=== PATIENT | female | born 1970 | race Caucasian/White ===

== ENCOUNTER 2017-12-15 19:48 | Emergency (ER) | payer SELFPAY ==
[~2017-12-15] VITALS: Ht 170.2 cm; Wt 79.4 kg
--- OUTSIDE RECORDS SUMMARY | 2017-12-15 19:55 | XMS REPORT | Continuity of Care Document ---
Author Author [facility] Organization [facility] Address Unknown Phone Unavailable Allergies There is no data. Medications There is no data. Problems There is no data. Procedures There is no data. Results There is no data. Encounters ACCT No. Visit Date/Time Discharge Status Pt. Type Provider Facility Loc./Unit Complaint [id number] 07/16/2013 17:57:00 07/16/2013 23:59:59 CLS Outpatient
[2017-12-15] MEDS ORDERED: KETOROLAC 30 MG/ML VIAL IVP ONE (20:00)
[2017-12-15] MEDS ORDERED: PROCHLORPERAZINE 10 MG/2ML INJ (COMPAZINE) IV ONE (20:00)
[2017-12-15] MEDS ORDERED: diphenhydrAMINE 50 MG/ML INJ (BENADRYL) IVP ONE (20:00)
--- NOTE | 2017-12-15 20:00 | ED General ---
General Chief Complaint: Abdominal/GI Problems Stated Complaint: VOMITING BLOOD/HEADACHE Source of Information: Patient Exam Limitations: No Limitations History of Present Illness Date Seen by Provider: Dec 15, 2017 Time Seen by Provider: 19:59 Initial Comments To ER with and son with reports of headache, vomiting with blood tinged sputum. This just began earlier this evening. Patient has a history of migraines but it's been a long time since she's had one that she does not recall whether or not this headache is similar to previous. After the headache began, she then developed nausea and vomiting some of which was tinged with blood. No abdominal pain. Timing/Duration: 4-6 Hours Severity: Moderate Associated Systoms: Headaches, Nausea/Vomiting Allergies and Home Medications Allergies Coded Allergies: No Known Drug Allergies (Unverified , 12/15/17) Constitutional: see HPI EENTM: see HPI Respiratory: no symptoms reported Cardiovascular: no symptoms reported Gastrointestinal: No abdominal pain, hematemesis, nausea Genitourinary: no symptoms reported Musculoskeletal: no symptoms reported Skin: no symptoms reported Psychiatric/Neurological: No Symptoms Reported Past Rmowahi-Icrjsh-Hzqtig Hx Patient Social History Recent Foreign Travel: No Contact w/Someone Who Travel: No Physical Exam Vital Signs Vital Sign - Last 12Hours 12/15/17 19:53 Temp 96.9 Pulse 85 Resp 20 B/P (MAP) 116/84 (95) Pulse Ox 98 O2 Delivery Room Air Capillary Refill : General Appearance: No Apparent Distress, WD/WN Eyes: Bilateral Eye Normal Inspection, Bilateral Eye PERRL, Bilateral Eye EOMI HEENT: PERRL/EOMI, TMs Normal, Normal ENT Inspection Neck: Full Range of Motion, Normal Inspection Respiratory: Normal Breath Sounds, No Accessory Muscle Use, No Respiratory Distress Cardiovascular: Regular Rate, Rhythm, Normal Peripheral Pulses Gastrointestinal: Non Tender, Soft Extremity: Normal Capillary Refill, Normal Inspection Neurologic/Psychiatric: Alert, Oriented x3, No Motor/Sensory Deficits Skin: Normal Color, Warm/Dry Progress/Results/Core Measures Suspected Sepsis SIRS Temperature: Pulse: Respiratory Rate: Laboratory Tests 12/15/17 20:04: White Blood Count 15.4H Blood Pressure / Mean: Laboratory Tests 12/15/17 20:04: Creatinine 0.78, Platelet Count 407H, Total Bilirubin 0.3 Results/Orders Lab Results Laboratory Tests Test 12/15/17 20:04 12/15/17 20:15 Range/Units White Blood Count 15.4 H 4.3-11.0 10^3/uL Red Blood Count 5.33 4.35-5.85 10^6/uL Hemoglobin 15.6 11.5-16.0 G/DL Hematocrit 47 35-52 % Mean Corpuscular Volume 88 80-99 FL Mean Corpuscular Hemoglobin 29 25-34 PG Mean Corpuscular Hemoglobin Concent 33 32-36 G/DL Red Cell Distribution Width 13.7 10.0-14.5 % Platelet Count 407 H 130-400 10^3/uL Mean Platelet Volume 8.9 7.4-10.4 FL Neutrophils (%) (Auto) 54 42-75 % Lymphocytes (%) (Auto) 34 12-44 % Monocytes (%) (Auto) 5 0-12 % Eosinophils (%) (Auto) 5 0-10 % Basophils (%) (Auto) 1 0-10 % Neutrophils # (Auto) 8.3 H 1.8-7.8 X 10^3 Lymphocytes # (Auto) 5.3 H 1.0-4.0 X 10^3 Monocytes # (Auto) 0.8 0.0-1.0 X 10^3 Eosinophils # (Auto) 0.7 H 0.0-0.3 10^3/uL Basophils # (Auto) 0.2 H 0.0-0.1 10^3/uL Neutrophils % (Manual) 48 % Lymphocytes % (Manual) 40 % Monocytes % (Manual) 3 % Eosinophils % (Manual) 7 % Basophils % (Manual) 2 % Band Neutrophils 0 % Blood Morphology Comment NORMAL Sodium Level 142 135-145 MMOL/L Potassium Level 4.0 3.6-5.0 MMOL/L Chloride Level 105 98-107 MMOL/L Carbon Dioxide Level 27 21-32 MMOL/L Anion Gap 10 5-14 MMOL/L Blood Urea Nitrogen 15 7-18 MG/DL Creatinine 0.78 0.60-1.30 MG/DL Estimat Glomerular Filtration Rate > 60 BUN/Creatinine Ratio 19 Glucose Level 101 70-105 MG/DL Calcium Level 9.4 8.5-10.1 MG/DL Total Bilirubin 0.3 0.1-1.0 MG/DL Aspartate Amino Transf (AST/SGOT) 10 5-34 U/L Alanine Aminotransferase (ALT/SGPT) 10 0-55 U/L Alkaline Phosphatase 71 40-136 U/L Total Protein 7.8 6.4-8.2 GM/DL Albumin 4.3 3.2-4.5 GM/DL Lipase 27 8-78 U/L Urine Color YELLOW Urine Clarity SLIGHTLY CLOUDY Urine pH 5 5-9 Urine Specific [place] 1.030 H 1.016-1.022 Urine Protein 1+ H NEGATIVE Urine Glucose (UA) NEGATIVE NEGATIVE Urine Ketones NEGATIVE NEGATIVE Urine Nitrite NEGATIVE NEGATIVE Urine Bilirubin NEGATIVE NEGATIVE Urine Urobilinogen 1 NORMAL MG/DL Urine Leukocyte Esterase 2+ H NEGATIVE Urine RBC (Auto) 3+ H NEGATIVE Urine RBC 2-5 H /HPF Urine WBC 5-10 H /HPF Urine Squamous Epithelial Cells 10-25 H /HPF Urine Crystals NONE /LPF Urine Bacteria FEW H /HPF Urine Casts NONE /LPF Urine Mucus LARGE H /LPF Urine Culture Indicated YES Urine Opiates Screen NEGATIVE NEGATIVE Urine Oxycodone Screen NEGATIVE NEGATIVE Urine Methadone Screen NEGATIVE NEGATIVE Urine Propoxyphene Screen NEGATIVE NEGATIVE Urine Barbiturates Screen NEGATIVE NEGATIVE Ur Tricyclic Antidepressants Screen NEGATIVE NEGATIVE Urine Phencyclidine Screen NEGATIVE NEGATIVE Urine Amphetamines Screen NEGATIVE NEGATIVE Urine Methamphetamines Screen NEGATIVE NEGATIVE Urine Benzodiazepines Screen NEGATIVE NEGATIVE Urine Cocaine Screen NEGATIVE NEGATIVE Urine Cannabinoids Screen NEGATIVE NEGATIVE My Orders Orders - ANDERSON HOUSE APRN Cbc With Automated Diff (12/15/17 19:57) Comprehensive Metabolic Panel (12/15/17 19:57) Lipase (12/15/17 19:57) Ua Culture If Indicated (12/15/17 19:57) Drug Screen Stat (Urine) (12/15/17 19:57) Saline Lock/Iv-Start (12/15/17 19:57) Ketorolac Injection (Toradol Injection) (12/15/17 20:00) Prochlorperazine Injection (Compazine In (12/15/17 20:00) Diphenhydramine Injection (Benadryl Inje (12/15/17 20:00) Ct Head Wo (12/15/17 19:57) Ns Iv 500 Ml (Sodium Chloride 0.9%) (12/15/17 20:15) Manual Differential (12/15/17 20:04) Urine Culture (12/15/17 20:15) Sulfamethoxazole/Trimet Ds Tab (Bactrim (12/15/17 21:00) Medications Given in ED Current Medications Medications Dose Ordered Sig/Kael Route Start Time Stop Time Status Last Admin Dose Admin Diphenhydramine HCl 25 mg ONCE ONCE IVP 12/15/17 20:00 12/15/17 20:01 DC 12/15/17 20:17 25 MG Ketorolac Tromethamine 30 mg ONCE ONCE IVP 12/15/17 20:00 12/15/17 20:01 DC 12/15/17 20:17 30 MG Prochlorperazine Edisylate 5 mg ONCE ONCE IV 12/15/17 20:00 12/15/17 20:01 DC 12/15/17 20:17 5 MG Vital Signs/I&O Vital Sign - Last 12Hours 12/15/17 19:53 Temp 96.9 Pulse 85 Resp 20 B/P (MAP) 116/84 (95) Pulse Ox 98 O2 Delivery Room Air Capillary Refill : Departure Communication (Admissions) Progress Notes 2047-patient is feeling much better. She did vomit here just before the IV start but states that sensation is gone. No abdominal pain. Headache is better. Impression Impression: Primary Impression: Headache Additional Impressions: Nausea and vomiting Urinary tract infection Disposition: HOME, SELF-CARE Condition: Improved Departure-Patient Inst. Decision time for Depature: 20:43 Referrals: NO,LOCAL PHYSICIAN (PCP/Family) Primary Care Physician Patient Instructions: Urinary Tract Infection, Adult (DC) Add. Discharge Instructions: 1. Antibiotics as directed 2. Return to ER for any concerns 3. See your doctor next week All discharge instructions reviewed with patient and/or family. Voiced understanding. Scripts Omeprazole (Omeprazole) 40 Mg Capsule. 40 MG PO DAILY, #14 CAP Prov: ANDERSON HOUSE BASKET BRAIDER 12/15/17 Sulfamethoxazole/Trimethoprim (Bactrim Ds Tablet) 1 Each Tablet 1 EACH PO BID, #10 TAB Prov: ANDERSON HOUSE BASKET BRAIDER 12/15/17 ANDERSON HOUSE BASKET BRAIDER Dec 15, 2017 20:00
[2017-12-15 20:15] LABS: BASOPHILS # (AUTO) 0.2 10^3/uL (0.0-0.1); BASOPHILS % (AUTO) 1 % (0-10); EOSINOPHILS # (AUTO) 0.7 10^3/uL (0.0-0.3); EOSINOPHILS % (AUTO) 5 % (0-10); HEMATOCRIT 47 % (35-52); HEMOGLOBIN 15.6 G/DL (11.5-16.0); LYMPHOCYTES # (AUTO) 5.3 X 10^3 (1.0-4.0); LYMPHOCYTES % (AUTO) 34 % (12-44); MEAN CORPUSCULAR HEMOGLOBIN 29 PG (25-34); MEAN CORPUSCULAR HGB CONC 33 G/DL (32-36); MEAN CORPUSCULAR VOLUME 88 FL (80-99); MEAN PLATELET VOLUME 8.9 FL (7.4-10.4); MONOCYTES # (AUTO) 0.8 X 10^3 (0.0-1.0); MONOCYTES % (AUTO) 5 % (0-12); NEUTROPHILS # (AUTO) 8.3 X 10^3 (1.8-7.8); NEUTROPHILS % (AUTO) 54 % (42-75); PLATELET COUNT 407 10^3/uL (130-400); RED BLOOD COUNT 5.33 10^6/uL (4.35-5.85); RED CELL DISTRIBUTION WIDTH 13.7 % (10.0-14.5); WHITE BLOOD COUNT 15.4 10^3/uL (4.3-11.0)
[2017-12-15] MEDS ORDERED: NS IV 500 ML 500 ML IV SCH (20:15)
[2017-12-15 20:30] LABS: BACTERIA,URINE FEW /HPF; BILIRUBIN,URINE NEGATIVE (NEGATIVE); CLARITY,URINE SLIGHTLY CLOUDY; COLOR,URINE YELLOW; GLUCOSE, URINE (UA) NEGATIVE (NEGATIVE); KETONES,URINE NEGATIVE (NEGATIVE); LEUKOCYTE ESTERASE ,URINE 2+ (NEGATIVE); NITRITE,URINE NEGATIVE (NEGATIVE); PH,URINE 5 (5-9); PROTEIN,URINE 1+ (NEGATIVE); UROBILINOGEN,URINE 1 MG/DL (NORMAL)
[2017-12-15 20:33] LABS: AMPHETAMINE SCREEN, URINE NEGATIVE (NEGATIVE); BARBITURATE SCREEN URINE NEGATIVE (NEGATIVE); BENZODIAZEPINES SCREEN URINE NEGATIVE (NEGATIVE); CANNABINOID SCREEN, URINE NEGATIVE (NEGATIVE); COCAINE SCREEN URINE NEGATIVE (NEGATIVE); METHADONE STAT NEGATIVE (NEGATIVE); METHAMPHETAMINE SCREEN URINE S NEGATIVE (NEGATIVE); OPIATE SCREEN URINE NEGATIVE (NEGATIVE); OXYCODONE STAT NEGATIVE (NEGATIVE); PROPOXYPHENE STAT NEGATIVE (NEGATIVE); TRICYCLIC ANTIDEPRESSANTS SCRE NEGATIVE (NEGATIVE)
--- NOTE | 2017-12-15 20:34 | Diagnostic Imaging Report ---
PROCEDURE: CT head without contrast. TECHNIQUE: Multiple contiguous axial images were obtained through the brain without the use of intravenous contrast. INDICATION: Migraine headache with nausea and vomiting. FINDINGS: The ventricles are normal in size, shape and position. There are no masses or hemorrhages. There are no extra-axial fluid collections. IMPRESSION: Negative CT head. Dictated by: Dictated on workstation # [id number]
[2017-12-15 20:36] LABS: ALANINE AMINOTRANSFERASE 10 U/L (0-55); ALBUMIN 4.3 GM/DL (3.2-4.5); ALKALINE PHOSPHATASE 71 U/L (40-136); BILIRUBIN,TOTAL 0.3 MG/DL (0.1-1.0); BUN/CREATININE RATIO 19; CALCIUM 9.4 MG/DL (8.5-10.1); CARBON DIOXIDE 27 MMOL/L (21-32); CHLORIDE 105 MMOL/L (98-107); CREATININE SERUM 0.78 MG/DL (0.60-1.30); GFR ESTIMATED > 60; GLUCOSE 101 MG/DL (70-105); LIPASE 27 U/L (8-78); SODIUM 142 MMOL/L (135-145); TOTAL PROTEIN 7.8 GM/DL (6.4-8.2)
[2017-12-15 20:38] LABS: BAND NEUTROPHILS 0 %; BASOPHILS % (MANUAL) 2 %; EOSINOPHILS % (MANUAL) 7 %; LYMPHOCYTES % (MANUAL) 40 %; MONOCYTES % (MANUAL) 3 %; NEUTROPHILS % (MANUAL) 48 %; RBC MORPH NORMAL
[2017-12-15] MEDS ORDERED: SULF1TAB35 PO (20:50)
[2017-12-15] MEDS ORDERED: OMEP40CA36 PO (20:50)
[2017-12-15] MEDS ORDERED: TRIM/SULFAMETH 160/800 (SEPTRA DS) TAB PO ONE (21:00)
[2017-12-15] MEDS ORDERED: ONDANSETRON 4 MG/2 ML (SDV) Z0FRAN IVP ONE (21:00)
[2017-12-15 21:14] VITALS: BP 116/84
== END 2017-12-15 21:14 | disposition home or self-care (01) ==
LOC: EDUNIT# 19:48 → ER 19:52
DX: R51 Headache (principal); R11.2 Nausea with vomiting, unspecified; N39.0 Urinary tract infection, site not specified
CPT/HCPCS: 36415; 70450; 80053; 80306; 81000; 83690; 85007; 85027; 87088; 96361; 96374; 96375

== ENCOUNTER 2018-06-21 19:55 | Emergency (ER) | payer SELFPAY ==
[~2018-06-21] VITALS: Ht 172.7 cm; Wt 90.7 kg
[~2018-06-21 19:55] MED LIST: OMEP40CA36 PO; SULF1TAB35 PO
[2018-06-21] MEDS ORDERED: RT-ALBUTEROL/IPRATROPIUM 3 ML (DUONEB) VIAL INH ONE (20:15)
[2018-06-21] MEDS ORDERED: ASPIRIN 81 MG CHEW (CHILDREN'S ASA) PO ONE (20:15)
--- NOTE | 2018-06-21 20:16 | ED Chest Pain ---
General Stated Complaint: L SIDE CP/HURTS TO BREATHE Source: patient Exam Limitations: no limitations History of Present Illness Date Seen by Provider: Jun 21, 2018 Time Seen by Provider: 20:14 Initial Comments To ER with sharp left lower chest pain for 3-4 days. She has had a cough. She denies any unusual shortness of breath. She denies fevers or chills. She is tearful when she arrives because she is concerned this may represent cardiac troubles. She has no personal history of heart disease. No immediate family history of heart disease she states. She is a smoker smoking one half to one pack of cigarettes per day. Pain is worsened by movements and deep breathing and coughing. She's been taking Tylenol and Motrin at home without relief. Timing/Duration: 3-4 days Severity/Quality: moderate, sharp Activities at Onset: none Modifying Factors: worse with breathing, worse with coughing, worse with lying down ASA po REMOTE SENSING SPECIALIST: No NTG SL REMOTE SENSING SPECIALIST: No Allergies and Home Medications Allergies Coded Allergies: No Known Drug Allergies (Unverified , 12/15/17) Home Medications Amoxicillin 500 Mg Capsule, 1,000 MG PO TID Prescribed by: ANDERSON HOUSE on 06/21/182131 Azithromycin 250 Mg Tablet, 250 MG PO DAILY Prescribed by: ANDERSON HOUSE on 06/21/182131 Omeprazole 40 Mg Capsule.dr, 40 MG PO DAILY Prescribed by: ANDERSON HOSUE on 12/15/172049 Sulfamethoxazole/Trimethoprim 1 Each Tablet, 1 EACH PO BID Prescribed by: ANDERSON HOUSE on 12/15/172049 Patient Home Medication List Home Medication List Reviewed: Yes Review of Systems Constitutional: see HPI; No chills, No fever EENTM: No Symptoms Reported Respiratory: See HPI, Cough Cardiovascular: See HPI, Chest Pain Gastrointestinal: See HPI Genitourinary: No Symptoms Reported Musculoskeletal: no symptoms reported Skin: no symptoms reported Psychiatric/Neurological: No Symptoms Reported Endocrine: No Symptoms Reported Hematologic/Lymphatic: No Symptoms Reported Past Wphnybo-Rwsckr-Glkdie Hx Patient Social History Type Used: Cigarettes 2nd Hand Smoke Exposure: Yes Recent Foreign Travel: No Contact w/Someone Who Travel: No Recent Hopitalizations: No Seasonal Allergies Seasonal Allergies: No Past Medical History Surgeries: No Respiratory: No Cardiac: No Neurological: No Genitourinary: No Gastrointestinal: No Musculoskeletal: No Endocrine: No HEENT: No Cancer: No Psychosocial: No Integumentary: No Blood Disorders: No Physical Exam Vital Signs Vital Signs - First Documented 06/21/18 06/21/18 20:22 20:28 Temp 99.0 Pulse 95 Resp 20 B/P (MAP) 141/96 (111) Pulse Ox 95 O2 Delivery Room Air Capillary Refill : Height, Weight, BMI Height: 5'7.00" Weight: 175lbs. 0oz. 79.535676kd; BMI Method:Stated General Appearance: No Apparent Distress, WD/WN HEENT: PERRL/EOMI, TMs Normal Neck: Full Range of Motion, Normal Inspection Respiratory: No Accessory Muscle Use, No Respiratory Distress, Wheezing Cardiovascular: Regular Rate, Rhythm, Normal Peripheral Pulses Extremity: Normal Capillary Refill, Normal Inspection Neurologic/Psychiatric: Alert, Oriented x3, No Motor/Sensory Deficits Skin: Normal Color, Warm/Dry Progress/Results/Core Measures Results/Orders Lab Results Laboratory Tests Test 06/21/18 20:07 Range/Units White Blood Count 16.6 H 4.3-11.0 10^3/uL Red Blood Count 5.02 4.35-5.85 10^6/uL Hemoglobin 15.0 11.5-16.0 G/DL Hematocrit 44 35-52 % Mean Corpuscular Volume 88 80-99 FL Mean Corpuscular Hemoglobin 30 25-34 PG Mean Corpuscular Hemoglobin Concent 34 32-36 G/DL Red Cell Distribution Width 14.1 10.0-14.5 % Platelet Count 410 H 130-400 10^3/uL Mean Platelet Volume 8.8 7.4-10.4 FL Neutrophils (%) (Auto) 58 42-75 % Lymphocytes (%) (Auto) 31 12-44 % Monocytes (%) (Auto) 6 0-12 % Eosinophils (%) (Auto) 5 0-10 % Basophils (%) (Auto) 1 0-10 % Neutrophils # (Auto) 9.6 H 1.8-7.8 X 10^3 Lymphocytes # (Auto) 5.1 H 1.0-4.0 X 10^3 Monocytes # (Auto) 1.0 0.0-1.0 X 10^3 Eosinophils # (Auto) 0.8 H 0.0-0.3 10^3/uL Basophils # (Auto) 0.1 0.0-0.1 10^3/uL Neutrophils % (Manual) 43 % Lymphocytes % (Manual) 49 % Monocytes % (Manual) 5 % Eosinophils % (Manual) 1 % Basophils % (Manual) 1 % Band Neutrophils 1 % Blood Morphology Comment NORMAL Prothrombin Time 13.0 12.2-14.7 SEC INR Comment 1.0 0.8-1.4 Activated Partial Thromboplast Time 40 H 24-35 SEC D-Dimer 0.84 H 0.00-0.49 UG/ML Sodium Level 139 135-145 MMOL/L Potassium Level 3.7 3.6-5.0 MMOL/L Chloride Level 106 98-107 MMOL/L Carbon Dioxide Level 23 21-32 MMOL/L Anion Gap 10 5-14 MMOL/L Blood Urea Nitrogen 11 7-18 MG/DL Creatinine 0.73 0.60-1.30 MG/DL Estimat Glomerular Filtration Rate > 60 BUN/Creatinine Ratio 15 Glucose Level 126 H 70-105 MG/DL Calcium Level 9.3 8.5-10.1 MG/DL Magnesium Level 2.1 1.8-2.4 MG/DL Total Bilirubin 0.3 0.1-1.0 MG/DL Aspartate Amino Transf (AST/SGOT) 10 5-34 U/L Alanine Aminotransferase (ALT/SGPT) 15 0-55 U/L Alkaline Phosphatase 82 40-136 U/L Myoglobin 10.6 10.0-92.0 NG/ML Troponin I < 0.30 <0.30 NG/ML Total Protein 7.2 6.4-8.2 GM/DL Albumin 4.3 3.2-4.5 GM/DL My Orders Orders - ANDERSON HOUSE APRN Cbc With Automated Diff (06/21/18 20:12) Magnesium (06/21/18 20:12) Ekg Tracing (06/21/18 20:12) Cardiac Profile 1 (06/21/18 20:12) Comprehensive Metabolic Panel (06/21/18 20:12) Myoglobin Serum (06/21/18 20:12) Protime With Inr (06/21/18 20:12) Partial Thromboplastin Time (06/21/18 20:12) O2 (06/21/18 20:12) Monitor-Rhythm Ecg Trace Only (06/21/18 20:12) Lipid Panel (06/22/18 06:00) Aspirin Chewable Tablet (Baby Aspirin Ch (06/21/18 20:15) Saline Lock/Iv-Start (06/21/18 20:12) Fibrin Degradation Products (06/21/18 20:12) Chest Pa/Lat (2 View) (06/21/18 20:12) Albuterol/Ipra Inhalation Soln (Duoneb I (06/21/18 20:15) Svn Small Volume Nebulizer (06/21/18 20:13) Manual Differential (06/21/18 20:07) Ct Angio Chest W (06/21/18 20:35) Diphenhydramine Injection (Benadryl Inje (06/21/18 21:30) Methylprednisolone Sod Succ (Solu-Medrol (06/21/18 21:30) Azithromycin Tablet (Zithromax Tablet) (06/21/18 22:00) Amoxicillin Capsule (Polymox Capsule) (06/21/18 22:00) Medications Given in ED Current Medications Medications Dose Ordered Sig/Kael Route Start Time Stop Time Status Last Admin Dose Admin Albuterol/ Ipratropium 3 ml ONCE ONCE INH 06/21/18 20:15 06/21/18 20:16 DC 06/21/18 20:20 3 ML Aspirin 324 mg ONCE ONCE PO 06/21/18 20:15 06/21/18 20:16 DC 06/21/18 20:20 324 MG Diphenhydramine HCl 25 mg ONCE ONCE IVP 06/21/18 21:30 06/21/18 21:31 DC 06/21/18 21:29 25 MG Iohexol 150 ml ONCE ONCE IV 06/21/18 21:15 06/21/18 21:16 DC 06/21/18 21:15 140 ML Methylprednisolone Sodium Succinate 125 mg ONCE ONCE IVP 06/21/18 21:30 06/21/18 21:31 DC 06/21/18 21:29 125 MG Sodium Chloride 100 ml ONCE ONCE IV 06/21/18 21:15 06/21/18 21:16 DC 06/21/18 21:15 100 ML Vital Signs/I&O 06/21/18 06/21/18 06/21/18 20:22 20:28 20:28 Temp 99.0 Pulse 95 Resp 20 B/P (MAP) 141/96 (111) Pulse Ox 95 93 O2 Delivery Room Air Room Air Room Air Diagnostic Imaging Diagonstic Imaging: Xray Comments NAME: EMBER ROBERTS [facility] REC#: [id number] PT STATUS: REG ER : 1970 PHYSICIAN: ANDERSON HOUSE APRN ADMIT DATE: 06/21/18/ER Draft Date of Exam:06/21/18 CHEST PA/LAT (2 VIEW) PATIENT HISTORY: Left-sided chest pain. TECHNIQUE: 2 views of the chest COMPARISON: None FINDINGS: Lung volumes are normal. There is a left basilar airspace opacity. No pleural effusion or pneumothorax is seen. An azygos fissure is noted. The cardiac silhouette is normal in size. IMPRESSION: Left basilar infiltrate, may represent infection in the appropriate clinical setting. Dictated on workstation # [id number] Dict: 06/21/182116 Trans: 06/21/182117 [facility] [id number] Interpreted by: DEB BAIN MD Electronically signed by: NAME: EMBER ROBERTS [facility] REC#: [id number] PT STATUS: REG ER : 1970 PHYSICIAN: ANDERSON HOUSE APRN ADMIT DATE: 06/21/18/ER Draft Date of Exam:06/21/18 CT ANGIO CHEST W PROCEDURE: CT angiography of the chest with contrast. TECHNIQUE: Multiple contiguous axial images were obtained through the chest after uneventful bolus administration of intravenous contrast. Reconstructed CTA MIP acquisitions were also performed. INDICATION: Left-sided chest pain radiating to the back, difficulty breathing. COMPARISON: Radiographs from the same day. FINDINGS: The pulmonary arteries are diagnostic to the segmental level. No pulmonary embolus is seen. The aorta is unremarkable. The heart appears normal. There is no pericardial effusion. No lymph nodes appear enlarged by CT size criteria. A few mildly prominent lymph nodes are seen at the aortopulmonary window and at the right hilum. Mild centrilobular emphysematous changes are seen throughout the lungs. There is dependent atelectasis bilaterally. An azygos fissure is noted. Airspace opacities are seen in the lingula and in the medial right middle lobe, most consistent with atelectasis. No pleural effusion or pneumothorax is seen. There are healing right-sided rib fractures anteriorly, involving the fourth through sixth ribs. No acute abnormality is seen in the upper abdomen. IMPRESSION: 1. No pulmonary embolus. 2. Mild emphysematous changes in the lungs. Bibasilar atelectasis. 3. Healing right-sided rib fractures anteriorly. Dictated on workstation # [id number] Dict: 06/21/182134 Trans: 06/21/182141 [facility] [id number] Interpreted by: DEB BAIN MD Electronically signed by: Departure Communication (Admissions) 2126-immediately after receiving IV contrast for CT scan she developed itching in her hands and her feet. No difficulty breathing. Benadryl and Solu-Medrol ordered. She states that she has asthma but since she smokes one half to one pack of cigarettes per day and is wheezing suspect she has a component of COPD as well. Because of this comorbidities COPD suspected I will place her on amoxicillin 1 g by mouth 3 times a day in addition to a macrolide which will be azithromycin Impression Primary Impression: Left lower lobe pneumonia Disposition: HOME, SELF-CARE Condition: Stable Departure-Patient Inst. Decision time for Depature: 21:27 Referrals: NO,LOCAL PHYSICIAN (PCP/Family) Primary Care Physician Patient Instructions: Pneumonia, Adult (DC) Add. Discharge Instructions: 1. Follow-up with your doctor within 1 week 2. Return to ER for any concerns such as shortness of breath or worsening pain or other concerns. 3. If antibiotics are too expensive, have [facility] pharmacy call our ER and I'll change to a cheaper antibiotic if they have one available that treats pneumonia. Scripts Azithromycin (Azithromycin) 250 Mg Tablet 250 MG PO DAILY, #4 TAB . Prov: ANDERSON HOUSE SLOT MACHINE MECHANIC 06/21/18 Amoxicillin (Amoxicillin) 500 Mg Capsule 1000 MG PO TID, #42 CAP . Prov: ANDERSON HOUSE APRN 06/21/18 ANDERSON HOUSE SLOT MACHINE MECHANIC Jun 21, 2018 20:16
[2018-06-21 20:18] LABS: BASOPHILS # (AUTO) 0.1 10^3/uL (0.0-0.1); BASOPHILS % (AUTO) 1 % (0-10); EOSINOPHILS # (AUTO) 0.8 10^3/uL (0.0-0.3); EOSINOPHILS % (AUTO) 5 % (0-10); HEMATOCRIT 44 % (35-52); LYMPHOCYTES # (AUTO) 5.1 X 10^3 (1.0-4.0); LYMPHOCYTES % (AUTO) 31 % (12-44); MEAN CORPUSCULAR HEMOGLOBIN 30 PG (25-34); MEAN CORPUSCULAR HGB CONC 34 G/DL (32-36); MEAN CORPUSCULAR VOLUME 88 FL (80-99); MEAN PLATELET VOLUME 8.8 FL (7.4-10.4); MONOCYTES % (AUTO) 6 % (0-12); NEUTROPHILS # (AUTO) 9.6 X 10^3 (1.8-7.8); NEUTROPHILS % (AUTO) 58 % (42-75); PLATELET COUNT 410 10^3/uL (130-400); RED BLOOD COUNT 5.02 10^6/uL (4.35-5.85); RED CELL DISTRIBUTION WIDTH 14.1 % (10.0-14.5); WHITE BLOOD COUNT 16.6 10^3/uL (4.3-11.0)
[2018-06-21 20:33] LABS: ALANINE AMINOTRANSFERASE 15 U/L (0-55); ALBUMIN 4.3 GM/DL (3.2-4.5); ALKALINE PHOSPHATASE 82 U/L (40-136); BILIRUBIN,TOTAL 0.3 MG/DL (0.1-1.0); BUN/CREATININE RATIO 15; CALCIUM 9.3 MG/DL (8.5-10.1); CARBON DIOXIDE 23 MMOL/L (21-32); CHLORIDE 106 MMOL/L (98-107); CREATININE SERUM 0.73 MG/DL (0.60-1.30); GFR ESTIMATED > 60; GLUCOSE 126 MG/DL (70-105); MAGNESIUM 2.1 MG/DL (1.8-2.4); POTASSIUM 3.7 MMOL/L (3.6-5.0); SODIUM 139 MMOL/L (135-145); TOTAL PROTEIN 7.2 GM/DL (6.4-8.2)
[2018-06-21 20:40] LABS: MYOGLOBIN SERUM 10.6 NG/ML (10.0-92.0)
[2018-06-21 20:42] LABS: BAND NEUTROPHILS 1 %; BASOPHILS % (MANUAL) 1 %; EOSINOPHILS % (MANUAL) 1 %; LYMPHOCYTES % (MANUAL) 49 %; MONOCYTES % (MANUAL) 5 %; NEUTROPHILS % (MANUAL) 43 %; RBC MORPH NORMAL
[2018-06-21] MEDS ORDERED: IOHEXOL 350 MG/ML 150 ML (OMNIPAQUE 350) VIAL IV ONE (21:15)
[2018-06-21] MEDS ORDERED: NS 100 ML (IVPB) BAG IV ONE (21:15)
--- NOTE | 2018-06-21 21:19 | Diagnostic Imaging Report ---
PATIENT HISTORY: Left-sided chest pain. TECHNIQUE: 2 views of the chest COMPARISON: None FINDINGS: Lung volumes are normal. There is a left basilar airspace opacity. No pleural effusion or pneumothorax is seen. An azygos fissure is noted. The cardiac silhouette is normal in size. IMPRESSION: Left basilar infiltrate, may represent infection in the appropriate clinical setting. Dictated by: Dictated on workstation # [id number]
[2018-06-21] MEDS ORDERED: diphenhydrAMINE 50 MG/ML INJ (BENADRYL) ONE (21:21)
[2018-06-21] MEDS ORDERED: methylPREDNISolone 125 MG (Solu-MEDROL) VIAL ONE (21:21)
[2018-06-21] MEDS ORDERED: diphenhydrAMINE 50 MG/ML INJ (BENADRYL) IVP ONE (21:30)
[2018-06-21] MEDS ORDERED: methylPREDNISolone 125 MG (Solu-MEDROL) VIAL IVP ONE (21:30)
[2018-06-21] MEDS ORDERED: AMOX500C2 PO ×3 (21:30→22:07)
[2018-06-21] MEDS ORDERED: AZIT250T12 PO ×3 (21:30→22:07)
--- NOTE | 2018-06-21 21:43 | Diagnostic Imaging Report ---
PROCEDURE: CT angiography of the chest with contrast. TECHNIQUE: Multiple contiguous axial images were obtained through the chest after uneventful bolus administration of intravenous contrast. Reconstructed CTA MIP acquisitions were also performed. INDICATION: Left-sided chest pain radiating to the back, difficulty breathing. COMPARISON: Radiographs from the same day. FINDINGS: The pulmonary arteries are diagnostic to the segmental level. No pulmonary embolus is seen. The aorta is unremarkable. The heart appears normal. There is no pericardial effusion. No lymph nodes appear enlarged by CT size criteria. A few mildly prominent lymph nodes are seen at the aortopulmonary window and at the right hilum. Mild centrilobular emphysematous changes are seen throughout the lungs. There is dependent atelectasis bilaterally. An azygos fissure is noted. Airspace opacities are seen in the lingula and in the medial right middle lobe, most consistent with atelectasis. No pleural effusion or pneumothorax is seen. There are healing right-sided rib fractures anteriorly, involving the fourth through sixth ribs. No acute abnormality is seen in the upper abdomen. IMPRESSION: 1. No pulmonary embolus. 2. Mild emphysematous changes in the lungs. Bibasilar atelectasis. 3. Healing right-sided rib fractures anteriorly. Dictated by: Dictated on workstation # [id number]
[2018-06-21] MEDS ORDERED: AZITHROMYCIN 250 MG TAB (ZITHROMAX) PO SCH (22:00)
[2018-06-21] MEDS ORDERED: AMOXICILLIN 500 MG (POLYMOX) CAP PO STA (22:00)
[2018-06-21] MEDS ORDERED: RX-HYDROCODONE/APAP 5/325 MG #4 TAB PK PO ONE (22:10)
[2018-06-21 22:20] VITALS: BP 119/67
== END 2018-06-21 22:20 | disposition home or self-care (01) ==
LOC: EDUNIT# 19:55 → ER 19:57
DX: J18.1 Lobar pneumonia, unspecified organism (principal); F17.210 Nicotine dependence, cigarettes, uncomplicated
CPT/HCPCS: 36415; 71046; 71275; 80053; 83735; 83874; 84484; 85007; 85027; 85379; 85610; 85730; 93005; 93041; 94640; 94664; 96374; 96375

== ENCOUNTER 2019-03-01 21:45 | Emergency (ER) | payer SELFPAY ==
[~2019-03-01] VITALS: Ht 170.2 cm; Wt 81.6 kg
[~2019-03-01 21:45] MED LIST changes: +AMOX500C2 PO; +AZIT250T12 PO
--- NOTE | 2019-03-01 22:18 | ED Integumentary General ---
General Chief Complaint: Skin/Wound Problems Stated Complaint: BODY RASH Nursing Triage Note: Patient reports rash to trunk, arms and behind knees bilaterally for 1 week. States she has been taking benadryl at home with no relief of symptoms. Source: patient History of Present Illness Date Seen by Provider: Mar 01, 2019 Time Seen by Provider: 22:18 Initial Comments 48 yo F presents with a week long rash that is itching. She reports it started on her stomach and has since spread all over. She states that it itches a lot and she has been scratching at it. She is not sure if she got into something when she has been doing yard work. She also has been using a different detergent at home. She was trying Benadryl at home but only taking it twice a day. It was helping initially but not anymore. She was not sure what else to do and the itching was keeping her up so she came to the ED tonight. She denies any fever or chills. Not had a rash like this before. Allergies and Home Medications Allergies Coded Allergies: No Known Drug Allergies (Unverified , 12/15/17) Home Medications Amoxicillin 500 Mg Capsule, 1,000 MG PO TID . Prescribed by: ANDERSON HOUSE on 06/21/182206 Azithromycin 250 Mg Tablet, 250 MG PO DAILY . Prescribed by: ANDERSON HOUSE on 06/21/182206 Omeprazole 40 Mg Capsule.dr, 40 MG PO DAILY Prescribed by: ANDERSON HOUSE on 12/15/172049 Sulfamethoxazole/Trimethoprim 1 Each Tablet, 1 EACH PO BID Prescribed by: ANDERSON HOUSE on 12/15/172049 Patient Home Medication List Home Medication List Reviewed: Yes Review of Systems Review of Systems Constitutional: No chills, No fever, No malaise EENTM: no symptoms reported Respiratory: No cough, No short of breath Cardiovascular: no symptoms reported Gastrointestinal: no symptoms reported Genitourinary: no symptoms reported Musculoskeletal: no symptoms reported Skin: see HPI, dryness, pruritus, rash (diffuse red slightly raised rash) Psychiatric/Neurological: No Symptoms Reported Endocrine: No Symptoms Reported Hematologic/Lymphatic: No Symptoms Reported Past Qiztmnu-Zqbwqe-Omgkfq Hx Past Med/Social Hx: Reviewed Nursing Past Med/Soc Hx Patient Social History Alcohol Use: Rarely Uses Recreational Drug Use: No Smoking Status: Current Everyday Smoker Type Used: Cigarettes 2nd Hand Smoke Exposure: Yes Recent Foreign Travel: No Contact w/Someone Who Travel: No Recent Infectious Disease Expo: No Recent Hopitalizations: No Physical Abuse: No Sexual Abuse: No Mistreated: No Fear: No Seasonal Allergies Seasonal Allergies: No Past Medical History Surgeries: No Respiratory: No Cardiac: No Neurological: No Genitourinary: No Gastrointestinal: No Musculoskeletal: No Endocrine: No HEENT: No Cancer: No Psychosocial: No Integumentary: No Blood Disorders: No Physical Exam Vital Signs Vital Signs - First Documented 03/01/19 21:57 Temp 97.6 Pulse 80 Resp 20 B/P (MAP) 136/73 (94) Pulse Ox 95 O2 Delivery Room Air Capillary Refill : Less Than 3 Seconds General Appearance: WD/WN, no apparent distress HEENT: normal ENT inspection, pharynx normal Neck: full range of motion, supple Cardiovascular: normal peripheral pulses, regular rate, rhythm Respiratory: chest non-tender, lungs clear, normal breath sounds Neurologic/Psychiatric: 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 nml as tested, alert, normal mood/affect, oriented x 3 Skin: warm/dry, rash (diffuse papular rash) Skin Problem Location: generalized Skin Problem Character: erythema, papules, rash Lymphatic: no adenopathy Progress/Results/Core Measures Results/Orders My Orders Orders - JAIME YOUSIF MD Dexamethasone Injection (Decadron Inject (03/01/19 22:45) Methylprednisolone Acetate Inj (Depo-Med (03/01/19 22:45) Medications Given in ED Current Medications Medications Dose Ordered Sig/Kael Route Start Time Stop Time Status Last Admin Dose Admin Dexamethasone Sodium Phosphate 10 mg ONCE ONCE IM 03/01/19 22:45 03/01/19 22:46 DC 03/01/19 22:45 10 MG Methylprednisolone Acetate 80 mg ONCE ONCE IM 03/01/19 22:45 03/01/19 22:46 DC 03/01/19 22:46 80 MG Vital Signs/I&O 03/01/19 03/01/19 21:57 22:50 Temp 97.6 97.6 Pulse 80 80 Resp 20 20 B/P (MAP) 136/73 (94) 136/73 (94) Pulse Ox 95 95 O2 Delivery Room Air Blood Pressure Mean: 94 Progress Progress Note : Progress Note will treat with steroids here and have her continue with H1/H2 blockade at home. Follow up with clinic if not helping. Try symptomatic treatment Departure Impression Primary Impression: Rash and nonspecific skin eruption Disposition: 01 HOME, SELF-CARE Condition: Stable Departure-Patient Inst. Decision time for Depature: 22:36 Referrals: NO,LOCAL PHYSICIAN (PCP/Family) Primary Care Physician Patient Instructions: Skin Rash (DC) Add. Discharge Instructions: Continue with Benadryl (Diphenhydramine) 25 to 50 mg every 4 hours as needed for rash and itching You could also take Pepcid (Famotidine) or Zantac (Ranitidine) since they also can help block histamine reactions and work with the Benadryl to treat the itching. An Oatmeal bath such as what Aveeno makes would also help with the itching. If the steroid shot and medicines are not helping over the next 3 to 5 days then check back with the clinic for further evaluation All discharge instructions reviewed with patient and/or family. Voiced understanding. JAIME YOUSIF MD Mar 01, 2019 22:18
[2019-03-01] MEDS ORDERED: methylPREDNISolone 80 MG/ML (DEPO MEDROL) VIAL IM ONE (22:45)
[2019-03-01] MEDS ORDERED: DEXAMETHASONE 10 MG/ML (DECADRON) 1 ML VIAL IM ONE (22:45)
[2019-03-01 22:50] VITALS: BP 136/73
== END 2019-03-01 22:56 | disposition home or self-care (01) ==
LOC: EDUNIT# 21:45 → ER FS 21:47
DX: R21 Rash and other nonspecific skin eruption (principal); F17.210 Nicotine dependence, cigarettes, uncomplicated
CPT/HCPCS: 99284

== ENCOUNTER 2019-08-06 17:00 | Emergency (ER) | payer SELFPAY, OTHER | END 2019-08-06 18:55 | disposition home or self-care (01) | LOC: ER FS 17:00 ==

== ENCOUNTER 2020-08-25 11:14 | Emergency (ER) | payer SELFPAY ==
[~2020-08-25] VITALS: Ht 170.1 cm; Wt 108.2 kg
[~2020-08-25 11:14] MED LIST changes: +OMEP40CA27 PO; -OMEP40CA36 PO
[2020-08-25 11:21] VITALS: BP 126/68
[2020-08-25] MEDS ORDERED: KETOROLAC 60 MG/2 ML VIAL IM ONE (11:30)
[2020-08-25] MEDS ORDERED: oxyCODONE/APAP 5/325MG (PERCOCET 5) TABLET PO ONE (11:30)
[2020-08-25] MEDS ORDERED: OXYC1TAB87 PO (11:34)
--- NOTE | 2020-08-25 11:34 | ED General ---
General Stated Complaint: RT KNEE PAIN History of Present Illness Date Seen by Provider: Aug 25, 2020 Time Seen by Provider: 11:28 Initial Comments Patient presents emergency department for evaluation of worsening right knee pain that has been going on for months and she has had x-rays on it and it showed severe degenerative disease and she has been seeing Jean Champagne the orthopedic edition assistant professor of sociology and has been getting steroid shots which help but over the past 2 days she has been having increasing pain to where she needs as sistance to ambulate. She denies any trauma but says that she has been on 13 hour shifts standing for long periods of time has been hurting her knee. She denies any weakness numbness tingling swelling erythema fevers chills or other systemic symptoms. She is in no obvious distress with normal vital signs. Allergies and Home Medications Allergies Coded Allergies: No Known Drug Allergies (Unverified , 12/15/17) Home Medications Amoxicillin 500 Mg Capsule, 1,000 MG PO TID . Prescribed by: ANDERSON HOUSE on 06/21/182206 Azithromycin 250 Mg Tablet, 250 MG PO DAILY . Prescribed by: ANDERSON HOUSE on 06/21/182206 Omeprazole 40 Mg Capsule.dr, 40 MG PO DAILY Prescribed by: ANDERSON HOUSE on 12/15/172049 Sulfamethoxazole/Trimethoprim 1 Each Tablet, 1 EACH PO BID Prescribed by: ANDERSON HOUSE on 12/15/172049 Patient Home Medication List Home Medication List Reviewed: Yes Review of Systems Review of Systems Constitutional: no symptoms reported Respiratory: no symptoms reported Cardiovascular: no symptoms reported Musculoskeletal: joint pain Skin: no symptoms reported Psychiatric/Neurological: No Symptoms Reported All Other Systems Reviewed Negative Unless Noted: Yes Past Ofsglkl-Mtbxtq-Bjqraa Hx Patient Social History Type Used: Cigarettes 2nd Hand Smoke Exposure: Yes Recent Hopitalizations: No Seasonal Allergies Seasonal Allergies: No Past Medical History Surgeries: Yes (uterine ablation ) Tonsillectomy, Tubal Ligation Respiratory: No Cardiac: No Neurological: No Genitourinary: No Gastrointestinal: No Musculoskeletal: No Endocrine: No HEENT: No Cancer: No Psychosocial: No Integumentary: No Blood Disorders: No Physical Exam Vital Signs Capillary Refill : Height, Weight, BMI Height: 5'7.00" Weight: 180lbs. 0oz. 81.671466jg; 33.00 BMI Method:Stated General Appearance: No Apparent Distress, WD/WN Respiratory: No Respiratory Distress Cardiovascular: Regular Rate, Rhythm Extremity: Normal Capillary Refill, Normal Inspection, Other (right knee with pain to range of motion actively and passively but no effusion erythema warmth or deformity. Joint was stable with no obvious laxity) Neurologic/Psychiatric: No Motor/Sensory Deficits Skin: Warm/Dry Progress/Results/Core Measures Suspected Sepsis SIRS Temperature: Pulse: Respiratory Rate: Blood Pressure / Mean: Results/Orders My Orders Orders - LAURO WATSON DO Ketorolac Injection (Toradol Injection) (08/25/20 11:30) Oxycodone/Apap 5/325mg Tablet (Percocet (08/25/20 11:30) Vital Signs/I&O Capillary Refill : Progress Note : Progress Note Patient has worsening degenerative disease he may require further orthopedic consultation for more advanced treatment at this time I told her with no effusion there is not much I can do as far as treating her pain other than pain medications. I told her to keep taking ibuprofen at home and I'll prescribe her Percocet for breakthrough pain and she can follow with orthopedic later this week and come back here with any worsening symptoms or other concerns. Patient aware and agreeable with plan and verbalized understanding of the above instructions. Departure Impression Primary Impression: Right knee DJD Qualified Codes: M17.11 - Unilateral primary osteoarthritis, right knee Disposition: 01 HOME, SELF-CARE Condition: Stable Departure-Patient Inst. Referrals: DONALD DUMAS (PCP/Family) Primary Care Physician Patient Instructions: Osteoarthritis (DC) Scripts Oxycodone HCl/Acetaminophen (Percocet 5-325 mg Tablet) 1 Each Tablet 1 TAB PO Q4H for PAIN-MODERATE MDD 6 TABS for 2 Days, #8 TAB Prov: LAURO WATSON DO 08/25/20 LAURO WATSON DO Aug 25, 2020 11:33
== END 2020-08-25 11:45 | disposition home or self-care (01) ==
LOC: EDUNIT# 11:14 → ER FS 11:16
DX: M17.11 Unilateral primary osteoarthritis, right knee (principal); Z77.22 Contact with and (suspected) exposure to environmental tobacco smoke (acute) (chronic)
CPT/HCPCS: 99284

== ENCOUNTER → 2020-08-27 | Outpatient (CLI) | payer SELFPAY ==
[~2020-08-27] MED LIST changes: +OXYC1TAB87 PO
--- NOTE | 2020-08-27 15:01 | Diagnostic Imaging Report ---
INDICATION: Knee pain COMPARISON: None. FINDINGS: 2 views of the right knee joint demonstrate no acute fracture or dislocation. No focal osseous lesions are seen. No significant joint effusion is seen. The surrounding soft tissue structures are unremarkable. There are no radiopaque foreign bodies. IMPRESSION: 1. No acute fractures or dislocations of the right knee joint. Dictated by: Dictated on workstation # [id number]
== END ==
LOC: RAD FS 14:14
PROVIDERS: ATTEND Nurse Practitioner
DX: M22.41 Chondromalacia patellae, right knee (principal)
CPT/HCPCS: 73560

== ENCOUNTER 2020-11-03 20:33 | Emergency (ER) | payer SELFPAY ==
[2020-11-03] MEDS ORDERED: FAMOTIDINE 20MG/2ML IV (PEPCID) IV STA (20:50)
[2020-11-03] MEDS ORDERED: LACTATED RINGERS 1,000 ML IV STA (20:50)
--- NOTE | 2020-11-03 20:50 | ED General ---
General Stated Complaint: NAUSEA/VOMITING/WEAKNESS History of Present Illness Date Seen by Provider: Nov 03, 2020 Time Seen by Provider: 20:50 Initial Comments 50-year-old female presents with some nausea, vomiting and weakness. Patient also reports some generalized malaise, mild cough but states she is a smoker and otherwise has a little bit of a cough. Patient reports some malaise and cough the bit worse couple days ago but the nausea vomiting diarrhea and generalized weakness started today. 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 She denies any fevers, chills, shortness of breath, chest pain. She also complains of a mild headache for the last couple days. Allergies and Home Medications Allergies Coded Allergies: No Known Drug Allergies (Unverified , 12/15/17) Home Medications Amoxicillin 500 Mg Capsule, 1,000 MG PO TID . Prescribed by: ANDERSON HOUSE on 06/21/182206 Azithromycin 250 Mg Tablet, 250 MG PO DAILY . Prescribed by: ANDERSON HOUSE on 06/21/182206 Ivermectin 3 Mg Tablet, 18 MG PO DAILY Take first dose on the morning of 11/04 then second dose on 11/06 Prescribed by: CAROLA SANTANA on 11/03/202107 Omeprazole 40 Mg Capsule.dr, 40 MG PO DAILY Prescribed by: ANDERSON HOUSE on 12/15/172049 Ondansetron 4 Mg Tab.rapdis, 4 MG PO Q6H PRN for NAUSEA/VOMITING Prescribed by: CAROLA SANTANA on 11/03/202107 Oxycodone HCl/Acetaminophen 1 Each Tablet, 1 TAB PO Q4H Prescribed by: LAURO WATSON on 08/25/20 113 Sulfamethoxazole/Trimethoprim 1 Each Tablet, 1 EACH PO BID Prescribed by: ANDERSON HOUSE on 12/15/172049 Patient Home Medication List Home Medication List Reviewed: Yes Review of Systems Review of Systems Constitutional: No chills, No fever; malaise, weakness Respiratory: cough; No short of breath, No wheezing Cardiovascular: No chest pain, No palpitations Gastrointestinal: No abdominal pain; diarrhea, nausea, vomiting Genitourinary: no symptoms reported Musculoskeletal: no symptoms reported Skin: no symptoms reported Psychiatric/Neurological: Headache Hematologic/Lymphatic: No Symptoms Reported Past Zxpgndb-Bqmwdh-Vhbwxp Hx Past Med/Social Hx: Reviewed Nursing Past Med/Soc Hx Patient Social History Type Used: Cigarettes 2nd Hand Smoke Exposure: Yes Recent Foreign Travel: No Contact w/Someone Who Travel: No Recent Hopitalizations: No Seasonal Allergies Seasonal Allergies: No Past Medical History Surgeries: Yes (uterine ablation ) Tonsillectomy, Tubal Ligation Respiratory: No Cardiac: No Neurological: No Genitourinary: No Gastrointestinal: No Musculoskeletal: No Endocrine: No HEENT: No Cancer: No Psychosocial: No Integumentary: No Blood Disorders: No Physical Exam Vital Signs Vital Signs - First Documented 11/03/20 20:43 Temp 37.1 Pulse 103 Resp 18 B/P (MAP) 150/80 (103) Pulse Ox 97 O2 Delivery Room Air Capillary Refill : Height, Weight, BMI Height: 5'7.00" Weight: 180lbs. 0oz. 81.687374eb; 37.00 BMI Method:Stated General Appearance: No Apparent Distress, Obese HEENT: PERRL/EOMI Neck: Non Tender, Supple Respiratory: No Accessory Muscle Use, No Respiratory Distress Cardiovascular: Regular Rate, Rhythm, No Edema Gastrointestinal: Soft, Tenderness (mild epigastric) Back: No CVA Tenderness Extremity: Normal Capillary Refill, Normal Inspection, Normal Range of Motion Neurologic/Psychiatric: Alert, Oriented x3, No Motor/Sensory Deficits, Normal Mood/Affect, sealer aircraft II-XII Norm as Tested Skin: Normal Color, Warm/Dry Progress/Results/Core Measures Suspected Sepsis SIRS Temperature: Pulse: Respiratory Rate: Laboratory Tests 11/03/20 20:55: White Blood Count 8.3 Blood Pressure / Mean: Laboratory Tests 11/03/20 20:55: Creatinine 0.73, Platelet Count 347, Total Bilirubin 0.2 Results/Orders Lab Results Laboratory Tests Test 11/03/20 20:55 11/03/20 21:05 Range/Units White Blood Count 8.3 4.3-11.0 10^3/uL Red Blood Count 4.84 4.35-5.85 10^6/uL Hemoglobin 14.3 11.5-16.0 G/DL Hematocrit 44 35-52 % Mean Corpuscular Volume 91 80-99 FL Mean Corpuscular Hemoglobin 30 25-34 PG Mean Corpuscular Hemoglobin Concent 33 32-36 G/DL Red Cell Distribution Width 14.1 10.0-14.5 % Platelet Count 347 130-400 10^3/uL Mean Platelet Volume 8.6 7.4-10.4 FL Immature Granulocyte % (Auto) 2 % Neutrophils (%) (Auto) 67 42-75 % Lymphocytes (%) (Auto) 18 12-44 % Monocytes (%) (Auto) 7 0-12 % Eosinophils (%) (Auto) 5 0-10 % Basophils (%) (Auto) 2 0-10 % Neutrophils # (Auto) 5.5 1.8-7.8 X 10^3 Lymphocytes # (Auto) 1.5 1.0-4.0 X 10^3 Monocytes # (Auto) 0.6 0.0-1.0 X 10^3 Eosinophils # (Auto) 0.4 H 0.0-0.3 10^3/uL Basophils # (Auto) 0.1 0.0-0.1 10^3/uL Immature Granulocyte # (Auto) 0.2 H 0.0-0.1 10^3/uL Sodium Level 138 135-145 MMOL/L Potassium Level 3.9 3.6-5.0 MMOL/L Chloride Level 102 98-107 MMOL/L Carbon Dioxide Level 22 21-32 MMOL/L Anion Gap 14 5-14 MMOL/L Blood Urea Nitrogen 6 L 7-18 MG/DL Creatinine 0.73 0.60-1.30 MG/DL Estimat Glomerular Filtration Rate > 60 BUN/Creatinine Ratio 8 Glucose Level 98 70-105 MG/DL Calcium Level 9.0 8.5-10.1 MG/DL Corrected Calcium 9.1 8.5-10.1 MG/DL Total Bilirubin 0.2 0.1-1.0 MG/DL Aspartate Amino Transf (AST/SGOT) 14 5-34 U/L Alanine Aminotransferase (ALT/SGPT) 13 0-55 U/L Alkaline Phosphatase 97 40-136 U/L C-Reactive Protein 1.44 H <0.50 MG/DL Total Protein 6.8 6.4-8.2 GM/DL Albumin 3.9 3.2-4.5 GM/DL Lipase 21 8-78 U/L My Orders Orders - SANTANA,CAROLA L DO Cbc With Automated Diff (11/03/20 20:50) Comprehensive Metabolic Panel (11/03/20 20:50) Influenza A And B Antigens (11/03/20 20:50) Coronavirus Sars-Cov-2 So 2019 (11/03/20 20:50) Lipase (11/03/20 20:50) Ua Culture If Indicated (11/03/20 20:50) Crp Fs (11/03/20 20:50) Acute Abd Series (11/03/20 20:50) Ondansetron Injection (Zofran Injectio (11/03/20 21:00) Lactated Ringers (Lr 1000 Ml Iv Solution (11/03/20 20:50) Famotidine Injection (Pepcid Injection) (11/03/20 20:50) Medications Given in ED Current Medications Medications Dose Ordered Sig/Kael Route Start Time Stop Time Status Last Admin Dose Admin Ondansetron HCl 4 mg ONCE ONCE IVP 11/03/20 21:00 11/03/20 21:01 DC 11/03/20 20:58 4 MG Vital Signs/I&O 11/03/20 20:43 Temp 37.1 Pulse 103 Resp 18 B/P (MAP) 150/80 (103) Pulse Ox 97 O2 Delivery Room Air Capillary Refill : Diagnostic Imaging Diagonstic Imaging: Xray Plain Films/CT/US/NM/MRI: abdomen Comments [facility], [place] NAME: EMBER ROBERTS [facility] REC#: [id number] PT STATUS: REG ER : 1970 PHYSICIAN: CAROLA SANTANA DO ADMIT DATE: 11/03/20/ER FS Signed Date of Exam:11/03/20 ACUTE ABD SERIES INDICATION: Cough. FINDINGS: The heart size is normal. Lungs are clear. There is no pleural effusion or pneumothorax. The mediastinum is unremarkable. The bowel gas pattern is nonspecific. There is no free air. There are no abnormal abdominal calcifications. IMPRESSION: 1. No acute cardiopulmonary abnormality. 2. Nonspecific bowel gas pattern. Dictated by: Dictated on workstation # [id number] Dict: 11/03/202120 Trans: 11/03/202124 PJE [id number] Interpreted by: CATHERINE WORLEY MD Departure Impression Primary Impression: Suspected COVID-19 virus infection Disposition: HOME, SELF-CARE Condition: Stable Departure-Patient Inst. Referrals: [facility] (PCP) Primary Care Physician DONALD DUMAS (Family) Primary Care Physician Patient Instructions: Coronavirus Disease 2019 (COVID-19) Overview Add. Discharge Instructions: Please start taking vitamin C 500 mg twice daily, Querctin 250 mg daily, be complex vitamins, zinc her milligrams daily, vitamin D3 4000 units daily, melatonin 0.5 mg nightly, 325 aspirin daily. Please take prescribed ivermectin first dose tomorrow morning then the next dose on 11/06 Return to the ER as needed Scripts Ivermectin (Ivermectin) 3 Mg Tablet 18 MG PO DAILY for 2 Days, #12 TAB Take first dose on the morning of 11/04 then second dose on 11/06 Prov: CAROLA SANTANA DO 11/03/20 Ondansetron (Ondansetron Odt) 4 Mg Tab.rapdis 4 MG PO Q6H PRN for NAUSEA/VOMITING, #20 TAB 0 Refills Prov: CAROLA SANTANA DO 11/03/20 CAROLA SANTANA DO Nov 03, 2020 20:50
[2020-11-03 21:00] LABS: HEMATOCRIT 44 % (35-52); HEMOGLOBIN 14.3 G/DL (11.5-16.0); MEAN CORPUSCULAR HEMOGLOBIN 30 PG (25-34); MEAN CORPUSCULAR HGB CONC 33 G/DL (32-36); MEAN CORPUSCULAR VOLUME 91 FL (80-99); PLATELET COUNT 347 10^3/uL (130-400); WHITE BLOOD COUNT 8.3 10^3/uL (4.3-11.0)
[2020-11-03] MEDS ORDERED: ONDANSETRON 4 MG/2 ML (SDV) Z0FRAN IVP ONE (21:00)
[2020-11-03 21:01] LABS: BASOPHILS # (AUTO) 0.1 10^3/uL (0.0-0.1); BASOPHILS % (AUTO) 2 % (0-10); EOSINOPHILS # (AUTO) 0.4 10^3/uL (0.0-0.3); EOSINOPHILS % (AUTO) 5 % (0-10); LYMPHOCYTES # (AUTO) 1.5 X 10^3 (1.0-4.0); LYMPHOCYTES % (AUTO) 18 % (12-44); MEAN PLATELET VOLUME 8.6 FL (7.4-10.4); MONOCYTES # (AUTO) 0.6 X 10^3 (0.0-1.0); MONOCYTES % (AUTO) 7 % (0-12); NEUTROPHILS # (AUTO) 5.5 X 10^3 (1.8-7.8); NEUTROPHILS % (AUTO) 67 % (42-75)
[2020-11-03] MEDS ORDERED: IVER3TAB2 PO (21:08)
[2020-11-03] MEDS ORDERED: ONDA4TAB11 PO (21:08)
[2020-11-03 21:19] LABS: CARBON DIOXIDE 22 MMOL/L (21-32); CHLORIDE 102 MMOL/L (98-107); POTASSIUM 3.9 MMOL/L (3.6-5.0); SODIUM 138 MMOL/L (135-145)
[2020-11-03 21:20] LABS: ALANINE AMINOTRANSFERASE 13 U/L (0-55); ALBUMIN 3.9 GM/DL (3.2-4.5); ALKALINE PHOSPHATASE 97 U/L (40-136); BILIRUBIN,TOTAL 0.2 MG/DL (0.1-1.0); BUN/CREATININE RATIO 8; CREATININE SERUM 0.73 MG/DL (0.60-1.30); GFR ESTIMATED > 60; GLUCOSE 98 MG/DL (70-105); LIPASE 21 U/L (8-78); TOTAL PROTEIN 6.8 GM/DL (6.4-8.2)
--- NOTE | 2020-11-03 21:24 | Diagnostic Imaging Report ---
INDICATION: Cough. FINDINGS: The heart size is normal. Lungs are clear. There is no pleural effusion or pneumothorax. The mediastinum is unremarkable. The bowel gas pattern is nonspecific. There is no free air. There are no abnormal abdominal calcifications. IMPRESSION: 1. No acute cardiopulmonary abnormality. 2. Nonspecific bowel gas pattern. Dictated by: Dictated on workstation # [id number]
[2020-11-03 22:22] LABS: BILIRUBIN,URINE NEGATIVE (NEGATIVE); CLARITY,URINE CLEAR; COLOR,URINE YELLOW; GLUCOSE, URINE (UA) NEGATIVE (NEGATIVE); KETONES,URINE NEGATIVE (NEGATIVE); NITRITE,URINE NEGATIVE (NEGATIVE); PH,URINE 5.5 (5-9); PROTEIN,URINE NEGATIVE (NEGATIVE)
[2020-11-03 22:23] LABS: BACTERIA,URINE FEW /HPF; LEUKOCYTE ESTERASE ,URINE NEGATIVE (NEGATIVE); RBC,URINE 0-2 /HPF; SQUAMOUS EPITHELIAL CELL,UR 25-50 /HPF
[2020-11-03 22:33] VITALS: BP 119/65
== END 2020-11-03 22:42 | disposition home or self-care (01) ==
LOC: EDUNIT# 20:33 → ER FS 20:39
DX: U07.1 COVID-19 (principal); E66.9 Obesity, unspecified; Z77.22 Contact with and (suspected) exposure to environmental tobacco smoke (acute) (chronic); Z68.37 Body mass index [BMI] 37.0-37.9, adult
CPT/HCPCS: 36415; 74022; 80053; 81000; 83690; 85025; 86141; 87088; 99283; U0002; 87635

== ENCOUNTER 2020-11-13 11:17 | Emergency (ER) | payer SELFPAY ==
[~2020-11-13] VITALS: Ht 162 cm; Wt 85.0 kg
[~2020-11-13 11:17] MED LIST changes: +IVER3TAB2 PO; +ONDA4TAB11 PO
[2020-11-13 11:28] VITALS: BP 123/43
--- NOTE | 2020-11-13 11:32 | ED Respiratory ---
General Chief Complaint: Respiratory Problems Stated Complaint: SOB; WHEEZING History of Present Illness Date Seen by Provider: Nov 13, 2020 Time Seen by Provider: 11:25 Initial Comments 50-year-old female presents with some "wheezing" maybe some shortness of breath. Patient's 14 days out after onset a COVID symptoms with 10 days out from a positive COVID test. Patient presents today because she was talking on the phone with her employer and her some "wheezing" so they wanted her evaluated go back to work. Patient called the health department who instructed her to come to the ER. Patient has upper respiratory congestion and wheezing but no wheezing or lungs. Patient uses inhalers frequently due to asthma. Patient denies any fevers, chills, nausea, vomiting, diarrhea or chest pain at this time. All her symptoms otherwise have resolved. Allergies and Home Medications Allergies Coded Allergies: No Known Drug Allergies (Unverified , 12/15/17) Home Medications Amoxicillin 500 Mg Capsule, 1,000 MG PO TID . Prescribed by: ANDERSON HOUSE on 06/21/182206 Azithromycin 250 Mg Tablet, 250 MG PO DAILY . Prescribed by: ANDERSON HOUSE on 06/21/182206 Ivermectin 3 Mg Tablet, 18 MG PO DAILY Take first dose on the morning of 11/04 then second dose on 11/06 Prescribed by: CAROLA SANTANA on 11/03/202107 Omeprazole 40 Mg Capsule.dr, 40 MG PO DAILY Prescribed by: ANDERSON HOUSE on 12/15/172049 Ondansetron 4 Mg Tab.rapdis, 4 MG PO Q6H PRN for NAUSEA/VOMITING Prescribed by: CAROLA SANTANA on 11/03/202107 Oxycodone HCl/Acetaminophen 1 Each Tablet, 1 TAB PO Q4H Prescribed by: LAURO WATSON on 08/25/20 1134 Sulfamethoxazole/Trimethoprim 1 Each Tablet, 1 EACH PO BID Prescribed by: ANDERSON HOUSE on 12/15/172049 Patient Home Medication List Home Medication List Reviewed: Yes Review of Systems Review of Systems Constitutional: No chills, No fever Respiratory: cough, short of breath, wheezing Cardiovascular: No chest pain, No palpitations Gastrointestinal: No diarrhea, No nausea, No vomiting Musculoskeletal: no symptoms reported Skin: no symptoms reported Psychiatric/Neurological: No Symptoms Reported Hematologic/Lymphatic: No Symptoms Reported Immunological/Allergic: no symptoms reported Past Enykmhk-Hfmouq-Ufdkqa Hx Past Med/Social Hx: Reviewed Nursing Past Med/Soc Hx Patient Social History Type Used: Cigarettes 2nd Hand Smoke Exposure: Yes Recent Foreign Travel: No Contact w/Someone Who Travel: No Recent Hopitalizations: No Seasonal Allergies Seasonal Allergies: No Past Medical History Surgeries: Yes (uterine ablation ) Tonsillectomy, Tubal Ligation Respiratory: No Cardiac: No Neurological: No Genitourinary: No Gastrointestinal: No Musculoskeletal: No Endocrine: No HEENT: No Cancer: No Psychosocial: No Integumentary: No Blood Disorders: No Physical Exam Vital Signs - First Documented 11/13/20 11:28 Temp 36.2 Pulse 82 B/P (MAP) 123/43 (69) Pulse Ox 16 Capillary Refill : Height: 5'7.00" Weight: 180lbs. 0oz. 81.800946di; 37.00 BMI Method:Stated General Appearance: WD/WN HEENT: PERRL/EOMI, other (congestion) Neck: supple, normal inspection Respiratory: lungs clear; No decreased breath sounds, No accessory muscle use, No wheezing Cardiovascular: normal peripheral pulses, regular rate, rhythm Gastrointestinal: non tender, soft Extremities: non-tender, normal inspection Neurologic/Psychiatric: alert, normal mood/affect, oriented x 3 Skin: normal color, warm/dry Progress/Results/Core Measures Suspected Sepsis SIRS Temperature: Pulse: Respiratory Rate: Blood Pressure / Mean: Results/Orders My Orders Orders - CAROLA SANTANA DO Chest 1 View Ap/Pa Only (11/13/20 11:27) Vital Signs/I&O 11/13/20 11:28 Temp 36.2 Pulse 82 B/P (MAP) 123/43 (69) Pulse Ox 16 Capillary Refill : Progress Note : Time: 12:02 Progress Note Patient's chest x-ray shows no acute findings. Patient's oxygen saturations are in normal limits. Patient has no wheezing in her lungs. She does have some upper airway congestion with some mild audible wheezing coming from her upper airway. I recommended she try some Flonase, allergy medication and Mucinex. Patient should otherwise continue her current asthma treatment. Follow-up with her primary care provider as needed. She is okay to return to work when she meets her COVID return to work protocol. Patient stable and discharged home Departure Impression Primary Impression: Congestion of upper airway Disposition: 01 HOME, SELF-CARE Condition: Stable Departure-Patient Inst. Referrals: NASEEM ALFARO MD (PCP/Family) Primary Care Physician Patient Instructions: Asthma, Adult (DC) Add. Discharge Instructions: I would recommend he try Flonase, Mucinex and allergy medication such as Zyrtec. Follow-up with your primary care provider to review your asthma action plan and current medications. All discharge instructions reviewed with patient and/or family. Voiced und erstanding. Work/School Note: Work Release Form Date Seen in the Emergency Department: Nov 13, 2020 Return to Work: Nov 13, 2020 CAROLA SANTANA DO Nov 13, 2020 11:32
--- NOTE | 2020-11-13 11:50 | Diagnostic Imaging Report ---
INDICATION: Cough and wheezing. TIME OF EXAM: 11:31 AM Correlation is made with prior chest from 11/03/2020. FINDINGS: Heart size is stable. There appears to be some minimal scarring or atelectasis right mid lung. No infiltrates are detected. There is no effusion or pneumothorax. IMPRESSION: No acute cardiopulmonary process is detected. Dictated by: Dictated on workstation # [id number]
== END 2020-11-13 12:12 | disposition home or self-care (01) ==
LOC: EDUNIT# 11:17 → ER FS 11:20
DX: J98.8 Other specified respiratory disorders (principal); Z77.22 Contact with and (suspected) exposure to environmental tobacco smoke (acute) (chronic)
CPT/HCPCS: 71045

== ENCOUNTER 2021-01-24 21:57 | Emergency (ER) | payer SELFPAY ==
[2021-01-24] MEDS ORDERED: PENI500T PO (22:14)
--- NOTE | 2021-01-24 22:14 | ED EENT ---
History of Present Illness General Chief Complaint: General Problems/Pain Stated Complaint: LT SIDE RIB PAIN,MOUTH PAIN Nursing Triage Note: Pt complaining of right upper dental pain and left rib pain History of Present Illness Date Seen by Provider: Jan 24, 2021 Time Seen by Provider: 22:12 Initial Comments 50-year-old female presents with dental pain, no injury, no swelling, history of chronic dental disease. Has not recently seen a dentist. No other concerns Allergies and Home Medications Allergies Coded Allergies: No Known Drug Allergies (Unverified , 12/15/17) Home Medications Amoxicillin 500 Mg Capsule, 1,000 MG PO TID . Prescribed by: ANDERSON HOUSE on 06/21/182206 Azithromycin 250 Mg Tablet, 250 MG PO DAILY . Prescribed by: ANDERSON HOUSE on 06/21/182206 Ivermectin 3 Mg Tablet, 18 MG PO DAILY Take first dose on the morning of 11/04 then second dose on 11/06 Prescribed by: CAROLA SANTANA on 11/03/202107 Omeprazole 40 Mg Capsule.dr, 40 MG PO DAILY Prescribed by: ANDERSON HOUSE on 12/15/172049 Ondansetron 4 Mg Tab.rapdis, 4 MG PO Q6H PRN for NAUSEA/VOMITING Prescribed by: CAROLA SANTANA on 11/03/202107 Oxycodone HCl/Acetaminophen 1 Each Tablet, 1 TAB PO Q4H Prescribed by: LAURO WATSON on 08/25/20 113 Penicillin V Potassium 500 Mg Tablet, 500 MG PO TID Prescribed by: ELISHA MOREIRA on 01/24/21 221 Sulfamethoxazole/Trimethoprim 1 Each Tablet, 1 EACH PO BID Prescribed by: ANDERSON HOUSE on 12/15/172049 Patient Home Medication List Home Medication List Reviewed: Yes Review of Systems Review of Systems Constitutional: No dizziness, No fever, No malaise Eyes: No Symptoms Reported Ears: No Symptoms Reported Nose: no symptoms reported Mouth: see HPI, pain; denies swelling, denies purulent discharge Throat: no symptoms reported; denies pain, denies swelling, denies discharge Respiratory: No cough, No short of breath Skin: No change in color, No lesions, No lumps, No rash Past Vdlumyg-Dpvjme-Iocmzq Hx Past Med/Social Hx: Reviewed Nursing Past Med/Soc Hx Patient Social History Alcohol Use: Denies Use Smoking Status: Current Everyday Smoker Type Used: Cigarettes 2nd Hand Smoke Exposure: Yes Recent Infectious Disease Expo: No Recent Hopitalizations: No Seasonal Allergies Seasonal Allergies: No Past Medical History Surgeries: Yes (uterine ablation ) Tonsillectomy, Tubal Ligation Respiratory: No Cardiac: No Neurological: No Genitourinary: No Gastrointestinal: No Musculoskeletal: No Endocrine: No HEENT: No Cancer: No Psychosocial: No Integumentary: No Blood Disorders: No Physical Exam Vital Signs Vital Signs - First Documented 01/24/21 22:02 Temp 36.8 Pulse 80 Resp 18 B/P (MAP) 139/86 (103) Pulse Ox 97 O2 Delivery Room Air Height, Weight, BMI Height: 5'7.00" Weight: 180lbs. 0oz. [id number]; 32.00 BMI Method:Stated General Appearance: WD/WN, no apparent distress Eyes: bilateral eye normal inspection, bilateral eye PERRL, bilateral eye EOMI Ears: bilateral ear auricle normal, bilateral ear canal normal Nose: normal inspection; No active bleeding, No dried blood Mouth/Throat: pharynx normal; No excessive drooling, No foreign body, No mandibular swelling, No maxillary swelling, No pharynx swelling, No pharynx tenderness, No tongue swollen, No tonsillar exudate, No tonsillar swelling, No uvula swelling, No voice changes; other (Chronic dental caries with no evidence of acute injury, abscess or acute infection.) Neck: non-tender, supple; No limited range of motion, No lymphadenopathy (R), No lymphadenopathy (L) Neurologic/Psychiatric: alert, normal mood/affect Skin: normal color, warm/dry Progress/Results/Core Measures Results/Orders Vital Signs/I&O 01/24/21 01/24/21 22:02 22:15 Temp 36.8 36.8 Pulse 80 80 Resp 18 18 B/P (MAP) 139/86 (103) 139/86 (103) Pulse Ox 97 97 O2 Delivery Room Air Room Air Blood Pressure Mean: 103 Departure Impression Primary Impression: Chronic enamel dental caries Disposition: 01 HOME, SELF-CARE Condition: Stable Departure-Patient Inst. Decision time for Depature: 22:13 Referrals: SELF,NASEEM BOONE (PCP/Family) Primary Care Physician Patient Instructions: Tooth Decay, Adult (DC) Add. Discharge Instructions: Call your dentist to arrange for definitive treatment of your chronic dental disease All discharge instructions reviewed with patient and/or family. Voiced understanding. Scripts Penicillin V Potassium (Penicillin V Potassium) 500 Mg Tablet 500 MG PO TID for 7 Days, #21 TAB Prov: ELISHA MOREIRA DO 01/24/21 ELISHA MOREIRA DO Jan 24, 2021 22:14
[2021-01-24 22:15] VITALS: BP 139/86
== END 2021-01-24 22:18 | disposition home or self-care (01) ==
LOC: EDUNIT# 21:57 → ER FS 21:59
DX: K02.61 Dental caries on smooth surface limited to enamel (principal); F17.210 Nicotine dependence, cigarettes, uncomplicated
CPT/HCPCS: 99281

== ENCOUNTER 2021-07-06 01:39 | Emergency (ER) | payer SELFPAY ==
[~2021-07-06] VITALS: Ht 170.1 cm; Wt 99.5 kg
[~2021-07-06 01:39] MED LIST changes: -OMEP40CA27 PO; +OMEP40CA6 PO; +PENI500T PO; -SULF1TAB35 PO; +SULF1TAB38 PO
[2021-07-06 01:45] VITALS: BP 139/77
--- NOTE | 2021-07-06 01:54 | ED GI ---
General Stated Complaint: NAUSEA/VOMITING Source of Information: Patient Exam Limitations: No Limitations History of Present Illness Date Seen by Provider: Jul 06, 2021 Time Seen by Provider: 01:52 Initial Comments 51 y/o female presents w nausea and vomiting x2.....onset tonight after going to bed. No other sick contacts at home. No recent illness, denies abdominal pain, chest pain or shortness of air. Allergies and Home Medications Allergies Coded Allergies: No Known Drug Allergies (Unverified , 12/15/17) Home Medications Amoxicillin 500 Mg Capsule, 1,000 MG PO TID . Prescribed by: ANDERSON HOUSE on 06/21/182206 Azithromycin 250 Mg Tablet, 250 MG PO DAILY . Prescribed by: ANDERSON HOUSE on 06/21/182206 Ivermectin 3 Mg Tablet, 18 MG PO DAILY Take first dose on the morning of 11/04 then second dose on 11/06 Prescribed by: CAROLA SANTANA on 11/03/202107 Omeprazole 40 Mg Capsule.dr, 40 MG PO DAILY Prescribed by: ANDERSON HOUSE on 12/15/172049 Ondansetron 4 Mg Tab.rapdis, 4 MG PO Q6H PRN for NAUSEA/VOMITING Prescribed by: CAROLA SANTANA on 11/03/202107 Oxycodone HCl/Acetaminophen 1 Each Tablet, 1 TAB PO Q4H Prescribed by: LAURO WATSON on 08/25/20 1134 Penicillin V Potassium 500 Mg Tablet, 500 MG PO TID Prescribed by: ELISHA MOREIRA on 01/24/21 2214 Sulfamethoxazole/Trimethoprim 1 Each Tablet, 1 EACH PO BID Prescribed by: ANDERSON HOUSE on 12/15/172049 Patient Home Medication List Home Medication List Reviewed: Yes Review of Systems Review of Systems Constitutional: No chills, No fever, No malaise, No weakness Respiratory: No Symptoms Reported Cardiovascular: No Symptoms Reported Gastrointestinal: See HPI; Denies Abdomen Distended, Denies Abdominal Pain; Nausea, Vomiting Genitourinary: No Symptoms Reported Musculoskeletal: no symptoms reported Skin: No change in color, No rash Past Vthopco-Dabadm-Gsqrgf Hx Patient Social History Tobacco Use?: Yes Seasonal Allergies Seasonal Allergies: No Past Medical History Surgeries: Yes (uterine ablation ) Tonsillectomy, Tubal Ligation Respiratory: No Cardiac: No Neurological: No Genitourinary: No Gastrointestinal: No Musculoskeletal: No Endocrine: No HEENT: No Cancer: No Psychosocial: No Integumentary: No Blood Disorders: No Physical Exam Vital Signs Capillary Refill : Height/Weight/BMI Height: 5'7.00" Weight: 180lbs. 0oz. 81.396954tc; 32.00 BMI Method:Stated General Appearance: WD/WN, no apparent distress HEENT: PERRL/EOMI, normal ENT inspection Neck: non-tender, supple Respiratory: chest non-tender, lungs clear, normal breath sounds, no respiratory distress, no accessory muscle use Cardiovascular: regular rate, rhythm, no edema, no gallop, no JVD Gastrointestinal: non tender, soft; No guarding, No rebound Progress/Results/Core Measures Progress Progress Note : Progress Note pt offered zofran and oddly she declined. Would not take a Rx either. Said she doesn't like the taste Departure Impression Primary Impression: Nausea and vomiting Qualified Codes: R11.2 - Nausea with vomiting, unspecified Disposition: HOME, SELF-CARE Condition: Improved Departure-Patient Inst. Decision time for Depature: 02:13 Referrals: NASEEM ALFARO MD (PCP/Family) Primary Care Physician Patient Instructions: Nausea and Vomiting, Adult ED Add. Discharge Instructions: follow up with Dr ALFARO in 3 days if not improving, ER sooner if worse or your symptoms progress Scripts Famotidine (Pepcid) 20 Mg Tablet 20 MG PO BID, #10 TAB Prov: ELISHA MOREIRA DO 07/06/21 ELISHA MOREIRA DO Jul 06, 2021 01:54
[2021-07-06] MEDS ORDERED: FAMO-119 PO (02:13)
== END 2021-07-06 02:22 | disposition home or self-care (01) ==
LOC: EDUNIT# 01:39 → ER FS 01:41
DX: R11.2 Nausea with vomiting, unspecified (principal)
CPT/HCPCS: 99282

== ENCOUNTER 2021-07-18 16:21 | Emergency (ER) | payer SELFPAY ==
[~2021-07-18] VITALS: Ht 170.1 cm; Wt 99.5 kg
[~2021-07-18 16:21] MED LIST changes: +FAMO-119 PO
--- NOTE | 2021-07-18 16:28 | ED General ---
General Stated Complaint: SOB; FACIAL TINGLING History of Present Illness Date Seen by Provider: Jul 18, 2021 Time Seen by Provider: 16:28 Initial Comments 51-year-old female presents with some mild chest tightness, shortness of breath and maybe a brief feeling of facial tingling. Patient has a history of COPD. She reports the symptoms were when she was at work and walking. Patient reports that she is feeling better now. Patient reports she had her inhaler with her but did not realize it was empty. Patient reports she has another one at home. Patient denies any fevers chills. She has a chronic cough is not worse. Allergies and Home Medications Allergies Coded Allergies: No Known Drug Allergies (Unverified , 12/15/17) Patient Home Medication List Home Medication List Reviewed: Yes Albuterol Sulfate (Proair Hfa) 1 Puff Puff, 2 PUFF IH Q4H PRN for SHORTNESS OF BREATH, (Reported) Entered as Reported by: NICOLLE READ on 07/18/21 1658 Last Action: New Order Doxycycline Hyclate (Doxycycline Hyclate) 100 Mg Tablet, 100 MG PO BID Prescribed by: CAROLA SANTANA on 07/18/21 172 Discontinued Medications Amoxicillin (Amoxicillin) 500 Mg Capsule, 1,000 MG PO TID Discontinued Reason: Referral/FU Appt-Addtl Prescribed by: ANDERSON HOUSE on 06/21/182206 Last Action: Discontinued Azithromycin (Azithromycin) 250 Mg Tablet, 250 MG PO DAILY Discontinued Reason: Referral/FU Appt-Addtl Prescribed by: ANDERSON HOUSE on 06/21/182206 Last Action: Discontinued Famotidine (Pepcid) 20 Mg Tablet, 20 MG PO BID Discontinued Reason: Referral/FU Appt-Addtl Prescribed by: ELISHA MOREIRA on 07/06/21212 Last Action: Discontinued Ivermectin (Ivermectin) 3 Mg Tablet, 18 MG PO DAILY Discontinued Reason: Referral/FU Appt-Addtl Prescribed by: CAROLA SANTANA on 11/03/202107 Last Action: Discontinued Omeprazole (Omeprazole) 40 Mg Capsule.dr, 40 MG PO DAILY Discontinued Reason: Referral/FU Appt-Addtl Prescribed by: ANDERSON HOUSE on 12/15/172049 Last Action: Discontinued Ondansetron (Ondansetron Odt) 4 Mg Tab.rapdis, 4 MG PO Q6H PRN for NAUSEA/VOMITING Discontinued Reason: Referral/FU Appt-Addtl Prescribed by: CAROLA SANTANA on 11/03/202107 Last Action: Discontinued Oxycodone HCl/Acetaminophen (Percocet 5-325 mg Tablet) 1 Each Tablet, 1 TAB PO Q4H Discontinued Reason: Referral/FU Appt-Addtl Prescribed by: LAURO WATSON on 08/25/20 113 Last Action: Discontinued Penicillin V Potassium (Penicillin V Potassium) 500 Mg Tablet, 500 MG PO TID Discontinued Reason: Referral/FU Appt-Addtl Prescribed by: ELISHA MOREIRA on 01/24/212213 Last Action: Discontinued Sulfamethoxazole/Trimethoprim (Bactrim Ds Tablet) 1 Each Tablet, 1 EACH PO BID Discontinued Reason: Referral/FU Appt-Addtl Prescribed by: ANDERSON HOUSE on 12/15/172049 Last Action: Discontinued Review of Systems Review of Systems Constitutional: No chills, No diaphoresis, No fever EENTM: no symptoms reported Respiratory: cough, short of breath Cardiovascular: No chest pain, No palpitations Gastrointestinal: No abdominal pain, No nausea, No vomiting Musculoskeletal: no symptoms reported Skin: no symptoms reported Psychiatric/Neurological: See HPI Hematologic/Lymphatic: No Symptoms Reported Immunological/Allergic: no symptoms reported Past Fprppgy-Fimnht-Umzfcb Hx Seasonal Allergies Seasonal Allergies: No Past Medical History Surgeries: Yes (uterine ablation ) Tonsillectomy, Tubal Ligation Respiratory: No Cardiac: No Neurological: No Genitourinary: No Gastrointestinal: No Musculoskeletal: No Endocrine: No HEENT: No Cancer: No Psychosocial: No Integumentary: No Blood Disorders: No Physical Exam Vital Signs Vital Signs - First Documented 07/18/21 16:25 Temp 36.2 Pulse 94 Resp 22 B/P (MAP) 140/74 (96) Pulse Ox 97 O2 Delivery Room Air Capillary Refill : Height, Weight, BMI Height: 5'7.00" Weight: 180lbs. 0oz. 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 Norm as Tested Skin: Normal Color, Warm/Dry Progress/Results/Core Measures Suspected Sepsis SIRS Temperature: Pulse: Respiratory Rate: Laboratory Tests 07/18/21 16:50: White Blood Count 14.2H Blood Pressure / Mean: Laboratory Tests 07/18/21 16:50: Creatinine 0.59L, Platelet Count 430H, Total Bilirubin 0.2 Results/Orders Lab Results Laboratory Tests Test 07/18/21 16:50 Range/Units White Blood Count 14.2 H 4.3-11.0 10^3/uL Red Blood Count 5.03 3.80-5.11 10^6/uL Hemoglobin 14.6 11.5-16.0 g/dL Hematocrit 45 35-52 % Mean Corpuscular Volume 90 80-99 fL Mean Corpuscular Hemoglobin 29 25-34 pg Mean Corpuscular Hemoglobin Concent 32 32-36 g/dL Red Cell Distribution Width 14.1 10.0-14.5 % Platelet Count 430 H 130-400 10^3/uL Mean Platelet Volume 8.5 L 9.0-12.2 fL Immature Granulocyte % (Auto) 1 % Neutrophils (%) (Auto) 59 42-75 % Lymphocytes (%) (Auto) 27 12-44 % Monocytes (%) (Auto) 5 0-12 % Eosinophils (%) (Auto) 7 0-10 % Basophils (%) (Auto) 1 0-10 % Neutrophils # (Auto) 8.3 H 1.8-7.8 X 10^3 Lymphocytes # (Auto) 3.8 1.0-4.0 X 10^3 Monocytes # (Auto) 0.8 0.0-1.0 X 10^3 Eosinophils # (Auto) 0.9 H 0.0-0.3 10^3/uL Basophils # (Auto) 0.2 H 0.0-0.1 10^3/uL Immature Granulocyte # (Auto) 0.2 H 0.0-0.1 10^3/uL Neutrophils % (Manual) 58 % Lymphocytes % (Manual) 21 % Monocytes % (Manual) 6 % Eosinophils % (Manual) 5 % Metamyelocytes % 1 % Band Neutrophils 5 % Atypical Lymphocytes 4 % Platelet Estimate INCREASED Blood Morphology Comment NORMAL Sodium Level 139 135-145 MMOL/L Potassium Level 3.5 L 3.6-5.0 MMOL/L Chloride Level 105 98-107 MMOL/L Carbon Dioxide Level 23 21-32 MMOL/L Anion Gap 11 5-14 MMOL/L Blood Urea Nitrogen 8 7-18 MG/DL Creatinine 0.59 L 0.60-1.30 MG/DL Estimat Glomerular Filtration Rate 107 BUN/Creatinine Ratio 14 Glucose Level 136 H 70-105 MG/DL Calcium Level 8.8 8.5-10.1 MG/DL Corrected Calcium 8.7 8.5-10.1 MG/DL Total Bilirubin 0.2 0.1-1.0 MG/DL Aspartate Amino Transf (AST/SGOT) 11 5-34 U/L Alanine Aminotransferase (ALT/SGPT) 11 0-55 U/L Alkaline Phosphatase 102 40-136 U/L Troponin I < 0.30 <0.30 NG/ML Total Protein 6.7 6.4-8.2 GM/DL Albumin 4.1 3.2-4.5 GM/DL My Orders Orders - SANTANA,CAROLA L DO Cbc With Automated Diff (07/18/21 16:31) Comprehensive Metabolic Panel (07/18/21 16:31) Troponin I Fs (07/18/21 16:31) Ekg Tracing (07/18/21 16:31) Chest 1 View Ap/Pa Only (07/18/21 16:31) Albuterol/Ipra Inhalation Soln (Duoneb I (07/18/21 16:45) Svn Small Volume Nebulizer (07/18/21 16:31) Manual Differential (07/18/21 16:50) Medications Given in ED Current Medications Medications Dose Ordered Sig/Kael Route Start Time Stop Time Status Last Admin Dose Admin Albuterol/ Ipratropium 3 ml ONCE ONCE INH 07/18/21 16:45 07/18/21 16:46 DC 07/18/21 16:43 3 ML Vital Signs/I&O 07/18/21 07/18/21 16:25 17:25 Temp 36.2 36.1 Pulse 94 83 Resp 22 22 B/P (MAP) 140/74 (96) 104/64 Pulse Ox 97 99 O2 Delivery Room Air Room Air Capillary Refill : Progress Note : Time: 17:20 Progress Note Patient with slight elevation of her white count of 14.2. Patient with a negative chest x-ray, negative EKG and no other significant findings on her labs. I suspect patient has a COPD with some mild respiratory infection. I will start her on doxycycline. Patient has an inhaler at home. Patient stable and discharged home ECG Initial ECG Impression Date: Jul 18, 2021 Initial ECG Impression Time: 16:38 Initial ECG Rate: 82 Initial ECG Rhythm: Normal Sinus Initial ECG Intervals: Normal Initial ECG Impression: Normal Diagnostic Imaging Diagonstic Imaging: Xray Plain Films/CT/US/NM/MRI: chest Comments Date of Exam:07/18/21 CHEST 1 VIEW AP/PA ONLY INDICATION: Chest tightness. TECHNIQUE: Frontal chest obtained at 04:42 p.m. and compared with 11/13/2020. FINDINGS: Heart and mediastinal silhouette are normal in appearance. The lungs show no focal infiltrate. There is a normal variant of an azygos lobe in the right upper lobe. There is no pneumothorax or pleural fluid. IMPRESSION: No acute process in the chest. Departure Impression Primary Impression: Acute bronchitis with COPD Disposition: 01 HOME, SELF-CARE Condition: Stable Departure-Patient Inst. Referrals: NASEEM ALFARO MD (PCP/Family) Primary Care Physician Patient Instructions: Bronchitis, Adult ED, Chronic Obstructive Pulmonary Disease (COPD) (DC) Add. Discharge Instructions: Use your inhaler every 4 hours as needed for shortness of breath Follow-up with your primary care provider next week for recheck Scripts Doxycycline Hyclate (Doxycycline Hyclate) 100 Mg Tablet 100 MG PO BID, #20 TAB 0 Refills Prov: CAROLA SANTANA DO 07/18/21 CAROLA SANTANA DO Jul 18, 2021 16:28
[2021-07-18] MEDS ORDERED: RT-ALBUTEROL/IPRATROPIUM 3 ML (DUONEB) VIAL INH ONE (16:45)
--- NOTE | 2021-07-18 16:47 | Diagnostic Imaging Report ---
INDICATION: Chest tightness. TECHNIQUE: Frontal chest obtained at 04:42 p.m. and compared with 11/13/2020. FINDINGS: Heart and mediastinal silhouette are normal in appearance. The lungs show no focal infiltrate. There is a normal variant of an azygos lobe in the right upper lobe. There is no pneumothorax or pleural fluid. IMPRESSION: No acute process in the chest. Dictated by: Dictated on workstation # [id number]
[2021-07-18] MEDS ORDERED: RT-ALBUINH IH (16:58)
[2021-07-18 17:12] LABS: WHITE BLOOD COUNT 14.2 10^3/uL (4.3-11.0)
[2021-07-18 17:13] LABS: BASOPHILS # (AUTO) 0.2 10^3/uL (0.0-0.1); BASOPHILS % (AUTO) 1 % (0-10); EOSINOPHILS # (AUTO) 0.9 10^3/uL (0.0-0.3); EOSINOPHILS % (AUTO) 7 % (0-10); HEMATOCRIT 45 % (35-52); HEMOGLOBIN 14.6 g/dL (11.5-16.0); LYMPHOCYTES # (AUTO) 3.8 X 10^3 (1.0-4.0); LYMPHOCYTES % (AUTO) 27 % (12-44); MEAN CORPUSCULAR HEMOGLOBIN 29 pg (25-34); MEAN CORPUSCULAR HGB CONC 32 g/dL (32-36); MEAN CORPUSCULAR VOLUME 90 fL (80-99); MEAN PLATELET VOLUME 8.5 fL (9.0-12.2); MONOCYTES # (AUTO) 0.8 X 10^3 (0.0-1.0); MONOCYTES % (AUTO) 5 % (0-12); NEUTROPHILS # (AUTO) 8.3 X 10^3 (1.8-7.8); NEUTROPHILS % (AUTO) 59 % (42-75); PLATELET COUNT 430 10^3/uL (130-400)
[2021-07-18 17:16] LABS: ALANINE AMINOTRANSFERASE 11 U/L (0-55); ALBUMIN 4.1 GM/DL (3.2-4.5); ALKALINE PHOSPHATASE 102 U/L (40-136); BILIRUBIN,TOTAL 0.2 MG/DL (0.1-1.0); BUN/CREATININE RATIO 14; CALCIUM 8.8 MG/DL (8.5-10.1); CARBON DIOXIDE 23 MMOL/L (21-32); CHLORIDE 105 MMOL/L (98-107); CREATININE SERUM 0.59 MG/DL (0.60-1.30); GFR ESTIMATED 107; GLUCOSE 136 MG/DL (70-105); POTASSIUM 3.5 MMOL/L (3.6-5.0); SODIUM 139 MMOL/L (135-145); TOTAL PROTEIN 6.7 GM/DL (6.4-8.2)
[2021-07-18 17:22] LABS: ATYPICAL LYMPHOCYTES 4 %; BAND NEUTROPHILS 5 %; EOSINOPHILS % (MANUAL) 5 %; LYMPHOCYTES % (MANUAL) 21 %; METAMYELOCYTES % 1 %; MONOCYTES % (MANUAL) 6 %; NEUTROPHILS % (MANUAL) 58 %; PLATELET ESTIMATE INCREASED; RBC MORPH NORMAL
[2021-07-18] MEDS ORDERED: DOXY100T2 PO (17:22)
[2021-07-18 17:25] VITALS: BP 104/64
== END 2021-07-18 17:25 | disposition home or self-care (01) ==
LOC: EDUNIT# 16:21 → ER FS 16:23
DX: J20.9 Acute bronchitis, unspecified (principal); J44.0 Chronic obstructive pulmonary disease with (acute) lower respiratory infection
CPT/HCPCS: 36415; 71045; 80053; 84484; 85007; 85027; 93005; 94640

== ENCOUNTER 2022-01-13 15:46 | Emergency (ER) | payer BC ==
[~2022-01-13 15:46] MED LIST changes: +DOXY100T2 PO; +RT-ALBUINH IH
[2022-01-13] MEDS ORDERED: RT-ALBUTEROL HFA 8.5 GM INHALER IH STA (16:03)
--- NOTE | 2022-01-13 16:13 | ED General ---
General Chief Complaint: Fever-Adult/Adol Stated Complaint: CP Source of Information: Patient History of Present Illness Date Seen by Provider: Jan 13, 2022 Time Seen by Provider: 15:48 Initial Comments 51-year-old female presenting with complaints of sharp chest pains throughout the day. She feels like the pain is worse with deep breaths. She has had co ngestion and nasal pressure. She has been having subjective fever and felt hot for the last several days. She does have a history of smoking and states that she has to use oxygen at night. She denies diagnosis of sleep apnea and thinks that she has a form of COPD. She has not been able to use the oxygen at night because it is supplied with the nasal cannula and her nurse has been too congested and stuffed up. She states that it has helped with her congestion. She has not had any of the vaccination shots for Covid or influenza. She states that she has previously had Covid infection twice most recently in September. She uses 2 different inhalers that she gets on a program through the clinic and the [facility]. She also has high cholesterol and high blood pressure. Severity: Moderate Modifying Factors: worse with Movement (exertion and deep breaths made it worse) Associated Systoms: Chest Pain (sharp pain in central part of chest, worse with deep breath and exertion), Cough (coughing up more congestion/mucus than usual), Diaphoresis (sweaty at times), Fever/Chills (subjective), Headaches (nasal congestion and sinus pressure); No Malaise, No Nausea/Vomiting, No Rash, No Seizure; Shortness of Air; No Syncope, No Weakness Allergies and Home Medications Allergies Coded Allergies: No Known Drug Allergies (Unverified , 12/15/17) Patient Home Medication List Home Medication List Reviewed: Yes Albuterol Sulfate (Proair Hfa) 1 Puff Puff, 2 PUFF IH Q4H PRN for SHORTNESS OF BREATH, (Reported) Entered as Reported by: NICOLLE READ on 07/18/21 1658 Azithromycin (Azithromycin) 500 Mg Tablet, 500 MG PO DAILY Prescribed by: JAIME YOUSIF on 01/13/22 1708 Doxycycline Hyclate (Doxycycline Hyclate) 100 Mg Tablet, 100 MG PO BID Prescribed by: CAROLA SANTANA on 07/18/21 1722 Review of Systems Review of Systems Constitutional: see HPI EENTM: see HPI Respiratory: see HPI Cardiovascular: see HPI Gastrointestinal: see HPI Genitourinary: no symptoms reported Musculoskeletal: no symptoms reported Skin: No rash Psychiatric/Neurological: See HPI, Anxiety Hematologic/Lymphatic: Denies Blood Clots Past Pjgjbbn-Utxvty-Luqxdj Hx Patient Social History Tobacco Use?: Yes Tobacco type used: Cigarettes Smoking Status: Current Everyday Smoker Use of E-Cig and/or Vaping dev: No Substance use?: No Alcohol Use?: No Pt feels they are or have been: No Seasonal Allergies Seasonal Allergies: No Past Medical History Surgery/Hospitalization HX: COPD, DM Surgeries: Yes (uterine ablation ) Tonsillectomy, Tubal Ligation Respiratory: No Cardiac: No Neurological: No Genitourinary: No Gastrointestinal: No Musculoskeletal: No Endocrine: No HEENT: No Cancer: No Psychosocial: No Integumentary: No Blood Disorders: No Physical Exam Vital Signs Vital Signs - First Documented 01/13/22 01/13/22 15:50 17:12 Temp 38.1 Pulse 93 Resp 24 B/P (MAP) 157/84 (108) Pulse Ox 95 O2 Delivery Room Air Capillary Refill : Height, Weight, BMI Height: 5'7.00" Weight: 180lbs. 0oz. 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 Skin: Normal Color, Warm/Dry Focused Exam Lactate Level 01/13/22 15:57: Lactic Acid Level 1.05 Lactic Acid Level Laboratory Tests Test 01/13/22 15:57 Lactic Acid Level 1.05 MMOL/L (0.50-2.00) Progress/Results/Core Measures Suspected Sepsis SIRS Temperature: Pulse: Respiratory Rate: Laboratory Tests 01/13/22 15:57: White Blood Count 12.4H Blood Pressure / Mean: 01/13/22 15:57: Lactic Acid Level 1.05 Laboratory Tests 01/13/22 15:57: Creatinine 0.65, INR Comment 0.9, Platelet Count 417H, Total Bilirubin 0.3 Results/Orders Lab Results Laboratory Tests Test 01/13/22 15:57 01/13/22 16:01 Range/Units White Blood Count 12.4 H 4.3-11.0 10^3/uL Red Blood Count 5.31 H 3.80-5.11 10^6/uL Hemoglobin 15.4 11.5-16.0 g/dL Hematocrit 47 35-52 % Mean Corpuscular Volume 89 80-99 fL Mean Corpuscular Hemoglobin 29 25-34 pg Mean Corpuscular Hemoglobin Concent 33 32-36 g/dL Red Cell Distribution Width 14.4 10.0-14.5 % Platelet Count 417 H 130-400 10^3/uL Mean Platelet Volume 9.0 9.0-12.2 fL Immature Granulocyte % (Auto) 1 % Neutrophils (%) (Auto) 58 42-75 % Lymphocytes (%) (Auto) 29 12-44 % Monocytes (%) (Auto) 6 0-12 % Eosinophils (%) (Auto) 5 0-10 % Basophils (%) (Auto) 2 0-10 % Neutrophils # (Auto) 7.2 1.8-7.8 10^3/uL Lymphocytes # (Auto) 3.6 1.0-4.0 10^3/uL Monocytes # (Auto) 0.7 0.0-1.0 10^3/uL Eosinophils # (Auto) 0.6 H 0.0-0.3 10^3/uL Basophils # (Auto) 0.2 H 0.0-0.1 10^3/uL Immature Granulocyte # (Auto) 0.1 0.0-0.1 10^3/uL Prothrombin Time 12.4 12.2-14.7 SEC INR Comment 0.9 0.8-1.4 Activated Partial Thromboplast Time 41 H 24-35 SEC D-Dimer 0.34 0.00-0.49 UG/ML Sodium Level 144 135-145 MMOL/L Potassium Level 4.2 3.6-5.0 MMOL/L Chloride Level 109 H 98-107 MMOL/L Carbon Dioxide Level 25 21-32 MMOL/L Anion Gap 10 5-14 MMOL/L Blood Urea Nitrogen 12 7-18 MG/DL Creatinine 0.65 0.60-1.30 MG/DL Estimat Glomerular Filtration Rate 107 BUN/Creatinine Ratio 18 Glucose Level 97 70-105 MG/DL Lactic Acid Level 1.05 0.50-2.00 MMOL/L Calcium Level 9.4 8.5-10.1 MG/DL Corrected Calcium 9.0 8.5-10.1 MG/DL Total Bilirubin 0.3 0.1-1.0 MG/DL Aspartate Amino Transf (AST/SGOT) 12 5-34 U/L Alanine Aminotransferase (ALT/SGPT) 14 0-55 U/L Alkaline Phosphatase 119 40-136 U/L Troponin I < 0.30 <0.30 NG/ML C-Reactive Protein 0.89 H <0.50 MG/DL Total Protein 7.4 6.4-8.2 GM/DL Albumin 4.5 3.2-4.5 GM/DL Influenza Type A Antigen NEGATIVE NEGATIVE Influenza Type B Antigen NEGATIVE NEGATIVE My Orders Orders - JAIME YOUSIF MD Monitor-Rhythm Ecg Trace Only (01/13/22 16:03) Ed Iv/Invasive Line Start (01/13/22 16:03) Cbc With Automated Diff (01/13/22 16:03) Comprehensive Metabolic Panel (01/13/22 16:03) Crp Fs (01/13/22 16:03) Troponin I Fs (01/13/22 16:03) Protime With Inr (01/13/22 16:03) Partial Thromboplastin Time (01/13/22 16:03) Ekg Tracing (01/13/22 16:03) Ns Iv 1000 Ml (Sodium Chloride 0.9%) (01/13/22 16:15) Acetaminophen Tablet/Caplet (Tylenol T (01/13/22 16:15) Covid 19 Inhouse Test (01/13/22 16:03) Influenza A & B Antigens (01/13/22 16:03) Chest 1 View Ap/Pa Only (01/13/22 16:03) Blood Culture (01/13/22 16:03) Sputum Culture (01/13/22 16:03) Isolation Central Supply Req (01/13/22 16:03) Lactic Acid Analyzer (01/13/22 16:03) Fibrin Degradation Products (01/13/22 16:03) Albuterol Inhaler (Albuterol) (01/13/22 16:03) Dexamethasone Injection (Decadron Inje (01/13/22 16:03) Ceftriaxone 1 Gm Pre-Mix (Rocephin 1 Gm (01/13/22 17:04) Medications Given in ED Current Medications Medications Dose Ordered Sig/Kael Route Start Time Stop Time Status Last Admin Dose Admin Acetaminophen 650 mg ONCE ONCE PO 01/13/22 16:15 01/13/22 16:16 DC 01/13/22 16:24 650 MG Vital Signs/I&O 01/13/22 01/13/22 15:50 17:12 Temp 38.1 Pulse 93 80 Resp 24 16 B/P (MAP) 157/84 (108) 134/62 Pulse Ox 95 96 O2 Delivery Room Air Capillary Refill : Progress Note #1: Progress Note Check labs, blood cultures, sputum culture, CXR, Covid swab, Influenza swab, ECG. With her fever will treat with acetaminophen to help with temperature. Decadron 10 mg IV for cough, shortness of breath and pleuritic chest pain. Albuterol inhaler with spacer to help with cough /congestion/soa. Normal saline 1 L IV for hydration. Differential diagnosis includes pneumonia, Covid, influenza, COPD exacerbation, sinusitis, viral syndrome, atypical pneumonia, upper respiratory infection, Pleuritic chest pain, myocardial infarction, congestive heart failure Progress Note #2: Progress Note Labs are stable without acute significant abnormality to account for her symptoms. Her WBC count was slightly elevated to 12.4. She has Negative Lactic acid and cardiac enzymes. Negative DDimer. No definite infiltrate on CXR and her ECG appears stable from prior tracings. her symptoms are improved with treatment in the ED. will treat for atypical lung infection since she is a smoker and has a low grade fever. Covid swab pending at time of discharge but influenza test negative. Counseled on follow up and return precautions. ECG Initial ECG Impression Date: Jan 13, 2022 Initial ECG Impression Time: 15:54 Initial ECG Rate: 85 Initial ECG Rhythm: Normal Sinus Initial ECG Comparisson: Unchanged Comment Normal sinus rhythm with a heart rate of 85 bpm. IN interval 153 ms. There is no acute ST elevation. There is some baseline wander on the tracing due to her breathing. Her QT interval is 362 ms with a QTc interval 431 ms. There is no change from prior tracings in the system. Diagnostic Imaging Diagonstic Imaging: Xray Plain Films/CT/US/NM/MRI: chest Comments NAME: EMBER ROBERTS REC#: [id number] PT STATUS: REG ER : 1970 PHYSICIAN: JAIME YOUSIF MD ADMIT DATE: 01/13/22/ER FS Draft Date of Exam:01/13/22 CHEST 1 VIEW AP/PA ONLY INDICATION: cough, sharp chest pains, Covid PUI COMPARISON: 07/18/2021. FINDINGS: Single frontal view of the chest demonstrates normal heart size and pulmonary vascularity. The lungs are well aerated and clear. No large pleural effusion or pneumothorax is seen. The visualized osseous structures show no acute abnormalities. IMPRESSION: 1. No acute cardiopulmonary process. Dictated on workstation # [id number] Dict: 01/13/22 1616 Trans: 01/13/22 1618 [id number] Interpreted by: SYED MORE MD Electronically signed by: Reviewed: Reviewed by Me Departure Impression Primary Impression: Pleuritic chest pain Additional Impressions: Upper respiratory infection with cough and congestion Person under investigation for COVID-19 Disposition: 01 HOME, SELF-CARE Condition: Stable Departure-Patient Inst. Decision time for Depature: 17:05 Referrals: NASEEM ALFARO MD (PCP/Family) Primary Care Physician Patient Instructions: COVID-19 Overview, How to Use a Spacer, Pleuritic Chest Pain ED, Upper Respiratory Infection ED Add. Discharge Instructions: Take the full course of antibiotics to treat for infection. Stay well hydrated and drink plenty of fluids. Use Ibuprofen or Naproxen to help with pain and inflammation in your chest. Use the inhaler with the spacer by taking 2 puffs of the inhaler and breathing deeply from the spacer to get the medicine into your lungs better. Check with clinic if not improving. Quarantine until you have a call from us about your Covid swab from today. If it is negative you would not have to continue to Quarantine. All discharge instructions reviewed with patient and/or family. Voiced understanding. Scripts Azithromycin (Azithromycin) 500 Mg Tablet 500 MG PO DAILY for 5 Days, #5 TAB 0 Refills Prov: JAIME YOUSIF MD 01/13/22 Work/School Note: Work Release Form Date Seen in the Emergency Department: Jan 13, 2022 Return to Work: Jan 15, 2022 Restrictions: Return-No Fever (24hrs) Other Restrictions Listed Below: Quarantine until negative Covid test. JAIME YOUSIF MD Jan 13, 2022 16:13
[2022-01-13] MEDS ORDERED: NS IV 1000 ML 1,000 ML IV SCH (16:15)
[2022-01-13] MEDS ORDERED: ACETAMINOPHEN 325 MG TABLET PO ONE (16:15)
--- NOTE | 2022-01-13 16:19 | Diagnostic Imaging Report ---
INDICATION: cough, sharp chest pains, Covid PUI COMPARISON: 07/18/2021. FINDINGS: Single frontal view of the chest demonstrates normal heart size and pulmonary vascularity. The lungs are well aerated and clear. No large pleural effusion or pneumothorax is seen. The visualized osseous structures show no acute abnormalities. IMPRESSION: 1. No acute cardiopulmonary process. Dictated by: Dictated on workstation # [id number]
[2022-01-13 16:27] LABS: BASOPHILS # (AUTO) 0.2 10^3/uL (0.0-0.1); BASOPHILS % (AUTO) 2 % (0-10); EOSINOPHILS # (AUTO) 0.6 10^3/uL (0.0-0.3); EOSINOPHILS % (AUTO) 5 % (0-10); HEMATOCRIT 47 % (35-52); HEMOGLOBIN 15.4 g/dL (11.5-16.0); LYMPHOCYTES # (AUTO) 3.6 10^3/uL (1.0-4.0); LYMPHOCYTES % (AUTO) 29 % (12-44); MEAN CORPUSCULAR HEMOGLOBIN 29 pg (25-34); MEAN CORPUSCULAR HGB CONC 33 g/dL (32-36); MEAN CORPUSCULAR VOLUME 89 fL (80-99); MONOCYTES # (AUTO) 0.7 10^3/uL (0.0-1.0); MONOCYTES % (AUTO) 6 % (0-12); NEUTROPHILS # (AUTO) 7.2 10^3/uL (1.8-7.8); NEUTROPHILS % (AUTO) 58 % (42-75); PLATELET COUNT 417 10^3/uL (130-400); WHITE BLOOD COUNT 12.4 10^3/uL (4.3-11.0)
[2022-01-13 16:31] LABS: INR 0.9 (0.8-1.4); PROTHROMBIN TIME PATIENT 12.4 SEC (12.2-14.7)
[2022-01-13 16:43] LABS: ALKALINE PHOSPHATASE 119 U/L (40-136); BILIRUBIN,TOTAL 0.3 MG/DL (0.1-1.0); BUN/CREATININE RATIO 18; CALCIUM 9.4 MG/DL (8.5-10.1); CARBON DIOXIDE 25 MMOL/L (21-32); CHLORIDE 109 MMOL/L (98-107); CREATININE SERUM 0.65 MG/DL (0.60-1.30); GFR ESTIMATED 107; GLUCOSE 97 MG/DL (70-105); POTASSIUM 4.2 MMOL/L (3.6-5.0); SODIUM 144 MMOL/L (135-145)
[2022-01-13 16:44] LABS: ALANINE AMINOTRANSFERASE 14 U/L (0-55); ALBUMIN 4.5 GM/DL (3.2-4.5); TOTAL PROTEIN 7.4 GM/DL (6.4-8.2)
[2022-01-13] MEDS ORDERED: cefTRIAXone 1 GM PRE-MIX 50 ML IV STA (17:04)
[2022-01-13] MEDS ORDERED: AZIT500T9 PO (17:08)
[2022-01-13 17:12] VITALS: BP 134/62
== END 2022-01-13 17:31 | disposition home or self-care (01) ==
LOC: EDUNIT# 15:46 → ER FS 15:48
DX: R07.81 Pleurodynia (principal); J06.9 Acute upper respiratory infection, unspecified; R09.81 Nasal congestion; F17.210 Nicotine dependence, cigarettes, uncomplicated; Z20.822 Contact with and (suspected) exposure to COVID-19
CPT/HCPCS: 36415; 71045; 80053; 83605; 84484; 85025; 85379; 85610; 85730; 86141; 87040; 87636; 87804; 93005; 96365; 96375

== ENCOUNTER 2022-06-19 08:00 | Emergency (ER) | payer OTHER ==
[~2022-06-19] VITALS: Ht 170.2 cm; Wt 104.3 kg
[~2022-06-19 08:00] MED LIST changes: +AZIT500T9 PO
[2022-06-19] MEDS ORDERED: fentaNYL INJ 100 MCG/2 ML AMP IVP STA (08:03)
[2022-06-19] MEDS ORDERED: KETOROLAC 30 MG/ML VIAL IVP STA (08:03)
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
--- NOTE | 2022-06-19 08:34 | Diagnostic Imaging Report ---
INDICATION: Left humeral pain post fall AP and lateral views left humerus are obtained. No fracture or acute bony abnormality seen. IMPRESSION: Negative left humerus. Dictated by: Dictated on workstation # [id number]
--- NOTE | 2022-06-19 08:45 | Diagnostic Imaging Report ---
EXAMINATION: Left forearm radiographs. EXAM DATE: 06/19/2022 8:28 AM. COMPARISON: None available. HISTORY: Left forearm pain after fall. TECHNIQUE: Two views. FINDINGS: There is no acute fracture, dislocation, or destructive osseous process. The joint spaces are normal. The soft tissues are normal. IMPRESSION: No acute osseous abnormality. Dictated by: Dictated on workstation # [id number]
--- NOTE | 2022-06-19 08:46 | Diagnostic Imaging Report ---
EXAMINATION: Left knee radiographs. EXAM DATE: 06/19/2022 8:28 AM. COMPARISON: None available. HISTORY: Left knee pain after fall. TECHNIQUE: Three views. FINDINGS: There is no acute fracture, dislocation, or destructive osseous process. The joint spaces are normal. The soft tissues are normal. IMPRESSION: No acute osseous abnormality. Dictated by: Dictated on workstation # [id number]
[2022-06-19] MEDS ORDERED: IBUP-1780 PO (09:29)
[2022-06-19] MEDS ORDERED: ACHD5005 PO (09:29)
[2022-06-19 09:36] VITALS: BP 137/64
== END 2022-06-19 09:36 | disposition home or self-care (01) ==
LOC: EDUNIT# 08:00 → ER FS 08:01
DX: S80.02XA Contusion of left knee, initial encounter (principal); S50.12XA Contusion of left forearm, initial encounter; S60.415A Abrasion of left ring finger, initial encounter; E66.9 Obesity, unspecified; F17.200 Nicotine dependence, unspecified, uncomplicated; Z68.34 Body mass index [BMI] 34.0-34.9, adult; Z28.310 Unvaccinated for COVID-19; W10.9XXA Fall (on) (from) unspecified stairs and steps, initial encounter
CPT/HCPCS: 73060; 73562

== ENCOUNTER 2022-08-13 15:16 | Emergency (ER) | payer SELFPAY ==
[~2022-08-13] VITALS: Ht 170 cm; Wt 107.0 kg
[~2022-08-13 15:16] MED LIST changes: +ACHD5005 PO; +IBUP-1780 PO
[2022-08-13 15:31] LABS: BASOPHILS # (AUTO) 0.2 10^3/uL (0.0-0.1); BASOPHILS % (AUTO) 1 % (0-10); EOSINOPHILS # (AUTO) 0.6 10^3/uL (0.0-0.3); EOSINOPHILS % (AUTO) 4 % (0-10); HEMATOCRIT 50 % (35-52); HEMOGLOBIN 16.7 g/dL (11.5-16.0); LYMPHOCYTES # (AUTO) 4.2 10^3/uL (1.0-4.0); LYMPHOCYTES % (AUTO) 27 % (12-44); MEAN CORPUSCULAR HEMOGLOBIN 29 pg (25-34); MEAN CORPUSCULAR HGB CONC 33 g/dL (32-36); MEAN CORPUSCULAR VOLUME 88 fL (80-99); MEAN PLATELET VOLUME 8.5 fL (9.0-12.2); MONOCYTES # (AUTO) 0.9 10^3/uL (0.0-1.0); MONOCYTES % (AUTO) 5 % (0-12); NEUTROPHILS # (AUTO) 9.5 10^3/uL (1.8-7.8); NEUTROPHILS % (AUTO) 61 % (42-75); PLATELET COUNT 441 10^3/uL (130-400); WHITE BLOOD COUNT 15.7 10^3/uL (4.3-11.0)
--- NOTE | 2022-08-13 15:39 | Diagnostic Imaging Report ---
Indication: Chest pain. Time of Exam: 3:29 PM Correlation is made with prior chest 01/13/2022. Heart size normal. There appears to be some increased density in the left base, suspicious for some infiltrate. Right lung is clear. There is no effusion or pneumothorax. IMPRESSION: Findings suggestive of left basilar infiltrate. Dictated by: Dictated on workstation # [id number]
[2022-08-13 15:50] LABS: BILIRUBIN,TOTAL 0.3 MG/DL (0.1-1.0); BUN/CREATININE RATIO 14; CALCIUM 9.6 MG/DL (8.5-10.1); CARBON DIOXIDE 28 MMOL/L (21-32); CHLORIDE 101 MMOL/L (98-107); CREATININE SERUM 0.73 MG/DL (0.60-1.30); GFR ESTIMATED 99; GLUCOSE 93 MG/DL (70-105); SODIUM 139 MMOL/L (135-145)
[2022-08-13 15:51] LABS: ALANINE AMINOTRANSFERASE 18 U/L (0-55); ALBUMIN 4.4 GM/DL (3.2-4.5); ALKALINE PHOSPHATASE 105 U/L (40-136); TOTAL PROTEIN 7.8 GM/DL (6.4-8.2)
[2022-08-13 15:59] LABS: BAND NEUTROPHILS 1 %; BASOPHILS % (MANUAL) 0 %; EOSINOPHILS % (MANUAL) 4 %; LYMPHOCYTES % (MANUAL) 28 %; MONOCYTES % (MANUAL) 3 %; NEUTROPHILS % (MANUAL) 60 %
[2022-08-13 16:00] LABS: ATYPICAL LYMPHOCYTES 4 %
[2022-08-13] MEDS ORDERED: CLIN-144 PO (16:26)
--- NOTE | 2022-08-13 16:26 | ED Chest Pain ---
General Chief Complaint: Chest Pain Stated Complaint: CP Nursing Triage Note: THE PT REPORTS SHE HAS BEEEN HAVING SHORTNESS OF BREATH FOR SEVERAL MONTHS BUT WORSENING TODAY WITH CHEST PAIN THEAT FEELS LIKE SHE IS BEING STABBED. 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 Source: patient Exam Limitations: no limitations History of Present Illness Date Seen by Provider: Aug 13, 2022 Time Seen by Provider: 15:30 Initial Comments Patient is a 52-year-old female with history of COPD who presents with chest wall pain/tenderness and cough for the past 3 days. Chest wall pain started 1/2 hours prior to to arrival. No history of CAD. Chest wall pain is worse with deep breathing, cough and palpation. She denies nausea vomiting fever chills or sweats. Patient is a current smoker half pack daily. No other symptoms or complaints. Timing/Duration: 2-3 days Severity/Quality: mild Location: other Radiation: other Activities at Onset: other Prior CP/Workup: other Modifying Factors: improves with other Allergies and Home Medications Allergies Coded Allergies: No Known Drug Allergies (Unverified , 12/15/17) Patient Home Medication List Home Medication List Reviewed: Yes Albuterol Sulfate (Proair Hfa) 1 Puff Puff, 2 PUFF IH Q4H PRN for SHORTNESS OF BREATH, (Reported) Entered as Reported by: NICOLLE READ on 07/18/21 1658 Azithromycin (Azithromycin) 500 Mg Tablet, 500 MG PO DAILY Prescribed by: JAIME YOUSIF on 01/13/22 1708 Doxycycline Hyclate (Doxycycline Hyclate) 100 Mg Tablet, 100 MG PO BID Prescribed by: CAROLA SANTANA on 07/18/21 1722 Hydrocodone/Acetaminophen (Hydrocodone-Acetamin 5-325 mg) 5 Mg-325 Mg Tablet, 1 TAB PO HS PRN for PAIN-SEVERE (8-10) Prescribed by: JAIME YOUSIF on 06/19/22 0930 Ibuprofen (Ibuprofen) 800 Mg Tablet, 800 MG PO Q8H PRN for PAIN Prescribed by: JAIME YOUSIF on 06/19/22 0929 Review of Systems Review of Systems Constitutional: see HPI EENTM: See HPI Respiratory: See HPI Cardiovascular: See HPI Gastrointestinal: See HPI Genitourinary: See HPI Musculoskeletal: see HPI Skin: see HPI Psychiatric/Neurological: See HPI Endocrine: See HPI Hematologic/Lymphatic: See HPI Past Gxdfjun-[id number]-[id number] Hx Patient Social History Tobacco Use?: Yes Tobacco type used: Cigarettes Smoking Status: Current Everyday Smoker Use of E-Cig and/or Vaping dev: No Substance use?: No Alcohol Use?: No Pt feels they are or have been: No Seasonal Allergies Seasonal Allergies: No Past Medical History Surgery/Hospitalization HX: COPD, DM Surgeries: Yes (uterine ablation ) Tonsillectomy, Tubal Ligation Respiratory: No Cardiac: No Neurological: No Genitourinary: No Gastrointestinal: No Musculoskeletal: No Endocrine: No HEENT: No Cancer: No Psychosocial: No Integumentary: No Blood Disorders: No Physical Exam Vital Signs Vital Signs - First Documented 08/13/22 15:16 Temp 36.4 Pulse 98 Resp 18 B/P (MAP) 99/82 (88) Pulse Ox 95 O2 Delivery Room Air Capillary Refill : Less Than 3 Seconds Height, Weight, BMI Height: 5'7.00" Weight: 180lbs. 0oz. [id number]; 37.00 BMI Method:Stated General Appearance: No Apparent Distress, WD/WN HEENT: PERRL/EOMI, Normal ENT Inspection, Moist Mucous Membranes Neck: Full Range of Motion Respiratory: Chest Non Tender, Normal Breath Sounds, Rhonci, Other (Chest wall tenderness but) Cardiovascular: Regular Rate, Rhythm Gastrointestinal: Non Tender, Soft Neurologic/Psychiatric: Alert, Oriented x3 Focused Exam Sepsis Stage: Ruled Out Progress/Results/Core Measures Results/Orders Lab Results Laboratory Tests Test 08/13/22 15:20 Range/Units White Blood Count 15.7 H 4.3-11.0 10^3/uL Red Blood Count 5.73 H 3.80-5.11 10^6/uL Hemoglobin 16.7 H 11.5-16.0 g/dL Hematocrit 50 35-52 % Mean Corpuscular Volume 88 80-99 fL Mean Corpuscular Hemoglobin 29 25-34 pg Mean Corpuscular Hemoglobin Concent 33 32-36 g/dL Red Cell Distribution Width 13.7 10.0-14.5 % Platelet Count 441 H 130-400 10^3/uL Mean Platelet Volume 8.5 L 9.0-12.2 fL Immature Granulocyte % (Auto) 1 % Neutrophils (%) (Auto) 61 42-75 % Lymphocytes (%) (Auto) 27 12-44 % Monocytes (%) (Auto) 5 0-12 % Eosinophils (%) (Auto) 4 0-10 % Basophils (%) (Auto) 1 0-10 % Neutrophils # (Auto) 9.5 H 1.8-7.8 10^3/uL Lymphocytes # (Auto) 4.2 H 1.0-4.0 10^3/uL Monocytes # (Auto) 0.9 0.0-1.0 10^3/uL Eosinophils # (Auto) 0.6 H 0.0-0.3 10^3/uL Basophils # (Auto) 0.2 H 0.0-0.1 10^3/uL Immature Granulocyte # (Auto) 0.2 H 0.0-0.1 10^3/uL Neutrophils % (Manual) 60 % Lymphocytes % (Manual) 28 % Monocytes % (Manual) 3 % Eosinophils % (Manual) 4 % Basophils % (Manual) 0 % Band Neutrophils 1 % Atypical Lymphocytes 4 % Sodium Level 139 135-145 MMOL/L Potassium Level 4.0 3.6-5.0 MMOL/L Chloride Level 101 98-107 MMOL/L Carbon Dioxide Level 28 21-32 MMOL/L Anion Gap 10 5-14 MMOL/L Blood Urea Nitrogen 10 7-18 MG/DL Creatinine 0.73 0.60-1.30 MG/DL Estimat Glomerular Filtration Rate 99 BUN/Creatinine Ratio 14 Glucose Level 93 70-105 MG/DL Calcium Level 9.6 8.5-10.1 MG/DL Corrected Calcium 9.3 8.5-10.1 MG/DL Total Bilirubin 0.3 0.1-1.0 MG/DL Aspartate Amino Transf (AST/SGOT) 15 5-34 U/L Alanine Aminotransferase (ALT/SGPT) 18 0-55 U/L Alkaline Phosphatase 105 40-136 U/L Troponin I < 0.30 <0.30 NG/ML Total Protein 7.8 6.4-8.2 GM/DL Albumin 4.4 3.2-4.5 GM/DL My Orders Orders - PATRICK CASSIDY DO Cbc With Automated Diff (08/13/22 15:25) Comprehensive Metabolic Panel (08/13/22 15:25) Troponin I Fs (08/13/22 15:25) Ekg Tracing (08/13/22 15:25) Chest 1 View Ap/Pa Only (08/13/22 15:25) Manual Differential (08/13/22 15:20) Vital Signs/I&O 08/13/22 15:16 Temp 36.4 Pulse 98 Resp 18 B/P (MAP) 99/82 (88) Pulse Ox 95 O2 Delivery Room Air Blood Pressure Mean: 88 Departure Communication (Admissions) Chest x-ray: Left lobar infiltrate EKG: Normal sinus rhythm, no acute ST-T wave changes. COPD with chest wall pain and findings of pneumonia on chest x-ray. Patient is currently on amoxicillin for treatment of dental infection. Will DC place and clindamycin. Recommendations for continued supportive care with PCP follow-up. Return precaution reviewed. Patient verbalizes understanding and agreement to discharge instructions prior to departure. Impression Primary Impression: COPD exacerbation Additional Impression: Pneumonia Disposition: HOME, SELF-CARE Condition: Stable Departure-Patient Inst. Decision time for Depature: 16:24 Referrals: SELFNASEEM MD (PCP/Family) Primary Care Physician Patient Instructions: Pneumonia, Adult (DC), Chronic Obstructive Pulmonary Disease (COPD), Including Emphysema Add. Discharge Instructions: You were evaluated in the emergency department for chest wall pain. EKG lab and imaging studies were performed. Chest x-ray shows pneumonia involving left lung. Please continue use of inhaler, discontinue amoxicillin and take clindamycin in its place. Follow-up with your PCP in 3 to 5 days for reevaluation. Return to the ED if new or worsening symptoms All discharge instructions reviewed with patient and/or family. Voiced understa nding. Scripts Clindamycin HCl (Clindamycin HCl) 300 Mg Capsule 300 MG PO TID, #30 CAP Prov: PATRICK CASSIDY DO 08/13/22 PATRICK CASSIDY DO Aug 13, 2022 16:25
[2022-08-13 16:28] VITALS: BP 135/86
[2022-08-14] MEDS ORDERED: dilTIAZem120 MG (CARDIZEM CD) CAP PO SCH (09:00)
== END 2022-08-13 16:29 | disposition home or self-care (01) ==
LOC: EDUNIT# 15:16 → ER FS 15:17
DX: J44.1 Chronic obstructive pulmonary disease with (acute) exacerbation (principal); J18.9 Pneumonia, unspecified organism; K04.7 Periapical abscess without sinus; F17.210 Nicotine dependence, cigarettes, uncomplicated; Z28.310 Unvaccinated for COVID-19
CPT/HCPCS: 36415; 71045; 80053; 84484; 85007; 85027; 93005

== ENCOUNTER → 2022-10-29 | Outpatient (CLI) | payer SELFPAY ==
[~2022-10-29] MED LIST changes: +ALBU8.5H6 IH; +CLIN-144 PO; -RT-ALBUINH IH
--- NOTE | 2022-10-29 17:37 | Diagnostic Imaging Report ---
EXAMINATION: Left ribs radiographs. EXAM DATE: 10/29/2022 11:18 AM COMPARISON: None available. HISTORY: Left rib pain TECHNIQUE: 3 views. FINDINGS: There is mild cortical irregularity seen along the lateral left ninth rib. Visualized lungs are clear. The soft tissues are normal. IMPRESSION: Possible minimally displaced fracture of the lateral left ninth rib. Dictated by: Dictated on workstation # [id number]
== END ==
LOC: RAD FS 10:28
PROVIDERS: ATTEND Family Medicine
DX: R07.81 Pleurodynia (principal)
CPT/HCPCS: 71100